=== PATIENT | female | born 1995 | race Caucasian/White ===

== ENCOUNTER 2016-04-26 23:05 | Outpatient (CLI) | payer MEDICAID ==
[2016-04-26 23:59] LABS: APPEARANCE,URINE SLIGHTLY-CLOUDY; BILIRUBIN,URINE NEGATIVE (NEGATIVE); GLUCOSE, URINE NEGATIVE (NEGATIVE); KETONES,URINE NEGATIVE (NEGATIVE); LEUKOCYTE ESTERASE,URINE SMALL (NEGATIVE); NITRITE,URINE NEGATIVE (NEGATIVE); PROTEIN,URINE NEGATIVE (NEGATIVE); URINE SPECIFIC GRAVITY 1.009; UROBILINOGEN,URINE NEGATIVE mg/dL (<2.0)
[2016-04-27 00:23] LABS: URINE BARBITURATES SCREEN NEGATIVE; URINE METHADONE SCREEN NEGATIVE; URINE OPIATES LOW NEGATIVE; URINE PHENCYCLIDINE SCREEN NEGATIVE
--- NOTE | 2016-04-27 04:45 | L&D General Admission ---
General Admit Datetime Report Generated by CPN: 04/27/2016 04:45 INFORMATION Patient Age: 20 (07/17/2015 18:37:QS system process) EDC: 07/29/2016 00:00 (04/26/2016 23:12:Alejandra Colvin RN) : 3 (04/26/2016 23:12:Radha Pelletier RN) Para: 1 (04/27/2016 01:32:Alejandra Colvin RN) Para: 1 (04/26/2016 23:12:Radha Pelletier RN) Term: 1 (04/26/2016 23:12:Radha Pelletier RN) : 0 (04/26/2016 23:12:Radha Pelletier RN) Induced Abortions: 1 (04/26/2016 23:12:Radha Pelletier RN) Livin (04/26/2016 23:12:Radha Pelletier RN) Baby, Number in Womb: 1 (04/27/2016 01:32:Alejandra Colvin RN) Baby, Number in Womb: 1 (04/26/2016 23:12:Radha Pelletier RN) CARE Primary Sintering Press Operator: [facility] (04/26/2016 23:12:Radha Pelletier RN) Adequate Care: Yes (04/26/2016 23:12:Alejandra Colvin RN) Height (in): 61 (04/26/2016 23:58:QS system process) ALLERGIES Medication Allergy: Yes (04/26/2016 23:12:Radha Pelletier RN) Medication Allergies: hydrocodone bitartrate (07/17/2015); Sulfa (Sulfonamide Antibiotics) (07/17/2015); sulfamethoxazole (07/17/2015); trimethoprim (07/17/2015) (08/05/2015 16:43:QS system process) Medication Allergies: Hydrocodone Bit (07/17/2015); Sulfa (Sulfonamide Antibiotics) (07/17/2015); Sulfamethoxazole (07/17/2015); Trimethoprim (07/17/2015) (07/17/2015 23:57:QS system process) Medication Allergies: Hydrocodone Bit (07/17/2015); Sulfa (Sulfonamide Antibiotics) (07/17/2015); Acetaminophen (07/17/2015); Sulfamethoxazole (07/17/2015); Trimethoprim (07/17/2015) (07/17/2015 19:27:QS system process) Medication Allergies: Hydrocodone Bit (01/15/2013); Sulfa (Sulfonamide Antibiotics) (01/15/2013); Acetaminophen (01/15/2013); Sulfamethoxazole (07/17/2015); Trimethoprim (07/17/2015) (07/17/2015 18:37:QS system process) Latex Allergy: No Latex Allergies (04/26/2016 23:12:Alejandra Colvin RN) Food Allergies: N/A (04/26/2016 23:12:Alejandra Colvin RN) Environmental Allergies: N/A (04/26/2016 23:12:Alejandra Colvin RN) COMMUNICATION Primary Language: Citizen Of [place] (04/26/2016 23:12:Radha Pelletier RN) Medical Tx Preferred Language: Citizen Of [place] (04/26/2016 23:12:Radha Pelletier RN) Communication Barrier(s): None (04/26/2016 23:12:Alejandra Colvin RN) DEMOGRAPHICS Address: [address] [place] [address], [address] [address] (04/26/2016 23:05:QS system process) Address: [address] [place] [id number] (07/17/2015 18:37:QS system process) Zipcode: [address] (04/26/2016 23:05:QS system process) Zipcode: [address] (07/17/2015 18:37:QS system process) Home (04/26/2016 23:05:QS system process) Home (07/17/2015 23:57:QS system process) Home (07/17/2015 18:37:QS system process) Work (04/26/2016 23:05:QS system process) SSN: [id number] (07/17/2015 18:37:QS system process) Next of Kin Name: SHELLEY DUNAWAY (07/17/2015 18:37:QS system process) Next of Kin (04/26/2016 23:05:QS system process) Next of Kin (07/17/2015 18:37:QS system process) Next of Kin Relationship: OR (07/17/2015 18:37:QS system process) Date of : 1995 (07/17/2015 18:37:QS system process) Marital Status: Legally (07/17/2015 18:37:QS system process) Sex: Female (07/17/2015 18:37:QS system process) Race: (07/17/2015 18:37:QS system process) Ethnicity: Non- or (07/17/2015 18:37:QS system process) Catholic: None (07/17/2015 18:37:QS system process) FOB Involved: Yes (04/26/2016 23:12:Alejandra Colvin RN) Father of Baby Name: hSelley Dunaway (04/26/2016 23:12:Alejandra Colvin RN) DRUG AND ALCOHOL USE Alcohol: No (04/26/2016 23:12:Alejandra Colvin RN) Cigarettes: Current Everyday Smoker. [id number] (04/26/2016 23:12:Alejandra Colvin RN) Average Cigarettes Smoked: 5 - 10 per day (04/26/2016 23:12:Alejandra Colvin RN) Advised to Stop Smoking: Yes (04/26/2016 23:12:Alejandra Colvin RN) Marijuana: No (04/26/2016 23:12:Alejandra Colvin RN) Cocaine: No (04/26/2016 23:12:Alejandra Colvin RN) Other Illicit Drugs: No (04/26/2016 23:12:Alejandra Colvin RN) VACCINE HISTORY Influenza Vaccine: No (04/26/2016 23:12:Alejandra Colvin RN) Pneumococcal Vaccine: No (04/26/2016 23:12:Alejandra Colvin RN) Tetanus Vaccine: No (04/26/2016 23:12:Alejandra Colvin RN) Tdap Vaccine: No (04/26/2016 23:12:Alejandra Colvin RN) Hepatitis B Vaccine: Uncertain (04/26/2016 23:12:Alejandra Colvin RN) Legal Financial Specialist: [facility] (04/26/2016 23:12:Alejandra Colvin RN) Feeding Preference: Breast (04/26/2016 23:12:Alejandra Colvin RN) Benefit of Breast Feed Discussed: Yes (04/26/2016 23:12:Alejandra Colvin RN) Circumcision: Yes (04/26/2016 23:12:Alejandra Colvin RN) Classes Attended: Unknown (04/26/2016 23:12:Alejandra Colvin RN) Tubal Ligation: No (04/26/2016 23:12:Alejandra Colvin RN) Tubal Authorization Signed: N/A (04/26/2016 23:12:Alejandra Colvin RN) Consent: N/A (04/26/2016 23:12:Alejandra Colvin RN) Consent Signed: N/A (04/26/2016 23:12:Alejandra Colvin RN) Pain Management Plans: Medications (04/26/2016 23:12:Alejandra Colvin RN) Plans for Labor and Delivery: None (04/26/2016 23:12:Alejandra Colvin RN) Support Person: Shelley Dunaway (04/26/2016 23:12:Alejandra Colvin RN) Support Person Relationship: Significant Other (04/26/2016 23:12:Alejandra Colvin RN) Cultural/Spritual Practice: No (04/26/2016 23:12:Alejandra Colvin RN) Spir/Cult Dietary Needs: No (04/26/2016 23:12:Alejandra Colvin RN) LIVING SITUATION/DISCHARGE PLAN Living Arrangements: House (04/26/2016 23:12:Alejandra Colvin RN) Adequate Access to:: Electric; Heat; Refrigeration; Plumbing/Running water; Phone; Transportation (04/26/2016 23:12:Alejandra Colvin RN) WIC Program: Yes (04/26/2016 23:12:Alejandra Colvin RN) Discharge Slot Shift Supervisor Person: Shelley Dunaway (04/26/2016 23:12:Alejandra Colvin RN) Person to Help after Discharge: Shelley Dunaway (04/26/2016 23:12:Alejandra Colvin RN) Currently Using Commun Resources: Yes (04/26/2016 23:12:Alejandra Colvin RN) Specify Current Resource Used: [facility] [place] (04/26/2016 23:12:Alejandra Colvin RN) Outside Agency/Keg Inspector: No (04/26/2016 23:12:Alejandra Colvin RN) Car Seat for Discharge: Yes (04/26/2016 23:12:Alejandra Colvin RN) Adoption Requested: No (04/26/2016 23:12:Alejandra Colvin RN) Pt Contact w/ Post : N/A (04/26/2016 23:12:Alejandra Colvin RN) LABS Blood Type: O Positive (04/26/2016 23:12:Radha Pelletier RN) Hemoglobin: 13.2 (07/17/2015 18:45:QS system process) Hematocrit: 40.1 (07/17/2015 18:45:QS system process) MCV: 88 (07/17/2015 18:45:QS system process) OB/PREVIOUS HISTORY Previous Procedures: Ultrasound; NST (04/26/2016 23:12:Alejandra Colvin RN) Current Procedures: Ultrasound (04/26/2016 23:12:Alejandra Colvin RN) History of Previous : No (04/26/2016 23:12:Alejandra Colvin RN) History of Gestational Diabetes: No (04/26/2016 23:12:Alejandra Colvin RN) History of PIH: No (04/26/2016 23:12:Alejandra Colvin RN) History of Incompetent Cervix: No (04/26/2016 23:12:Alejandra Colvin RN) History of Placenta Previa/Abrup: No (04/26/2016 23:12:Alejandra Colvin RN) History of Macrosomia: No (04/26/2016 23:12:Alejandra Colvin RN) History of IUGR: No (04/26/2016 23:12:Alejandra Colvin RN) History of Hemorrhage: No (04/26/2016 23:12:Alejandra Colvin RN) History of Loss/Stillborn: No (04/26/2016 23:12:Alejandra Colvin RN) History of : No (04/26/2016 23:12:Alejandra Colvin RN) History of D (Rh) Sensitization: No (04/26/2016 23:12:Alejandra Colvin RN) History Recurrent Loss/Stillborn: No (04/26/2016 23:12:Alejandra Colvin RN) History Depression/PP Depression: No (04/26/2016 23:12:Alejandra Colvin RN) History of Uterine Anomaly/EULOGIO: No (04/26/2016 23:12:Alejandra Colvin RN) History of Infertility: No (04/26/2016 23:12:Alejandra Colvin RN) History of ART Treatment: No (04/26/2016 23:12:Alejandra Colvin RN) History of EULOGIO: No (04/26/2016 23:12:Alejandra Colvin RN) Comments Obstetrical History: G1 - 2009 - SAB G2 - 04/2015 - , girl G3 - current (04/26/2016 23:12:Alejandra Colvin RN) MEDICAL HISTORY Med Hx Diabetes: No (04/26/2016 23:12:Alejandra Colvin RN) Med Hx Hypertension: No (04/26/2016 23:12:Alejandra Colvin RN) Med Hx Heart Disease: No (04/26/2016 23:12:Alejandra Field, RN) Med Hx Autoimmune Disorder: No (04/26/2016 23:12:Alejandra Colvin RN) Med Hx Kidney Disease/UTI: No (04/26/2016 23:12:Alejandra Colvin RN) Med Hx Neurologic/Epilepsy: No (04/26/2016 23:12:Alejandra Colvin RN) Med Hx Psychiatric Disorders: No (04/26/2016 23:12:Alejandra Colvin RN) Med Hx Hepatitis/Liver Disease: No (04/26/2016 23:12:Alejandra Colvin RN) Med Hx Varicosities/Phlebitis: No (04/26/2016 23:12:Alejandra Colvin RN) Med Hx Thyroid Dysfunction: No (04/26/2016 23:12:Alejandra Colvin RN) Med Hx Trauma/Violence: No (04/26/2016 23:12:Alejandra Colvin RN) Med Hx Blood Transfusion: No (04/26/2016 23:12:Alejandra Colvin RN) Med Hx Pulmonary (Asthma,TB): No (04/26/2016 23:12:Alejandra Colvin RN) Med Hx Breast: No (04/26/2016 23:12:Alejandra Colvin RN) Med Hx SENIOR RESEARCH FELLOW Surgery: No (04/26/2016 23:12:Alejandra Colvin RN) Med Hx Hospitalization/Surgery: Yes (04/26/2016 23:12:Alejandra Colvin RN) Med Hx Anesthetic Complications: No (04/26/2016 23:12:Alejandra Colvin RN) Med Hx Abnormal Pap Smear: No (04/26/2016 23:12:Alejandra Colvin RN) Other Medical Diseases: No (04/26/2016 23:12:Alejandra Colvin RN) Med Hx Significant Family Hx: No (04/26/2016 23:12:Alejandra Colvin RN) Details of Med/Surg Hx: Tonsilectomy - 08/2013 (04/26/2016 23:12:Alejandra Colvin RN) INFECTIOUS HISTORY Inf Hx Gonorrhea: No (04/26/2016 23:12:Alejandra Colvin RN) Inf Hx Chlamydia: No (04/26/2016 23:12:Alejandra Colvin RN) Inf Hx Syphilis: No (04/26/2016 23:12:Alejandra Colvin RN) Inf Hx HIV/AIDS: No (04/26/2016 23:12:Alejandra Colvin RN) Inf Hx Human Papilloma Virus: Yes (04/26/2016 23:12:Alejandra Colvin RN) Inf Hx Pt/Partner Genital Herpes: No (04/26/2016 23:12:Alejandra Colvin RN) Inf Hx Tuberculosis/Exposure: No (04/26/2016 23:12:Alejandra Colvin RN) Inf Hx Hepatitis B,C: No (04/26/2016 23:12:Alejandra Colvin RN) Inf Hx Rash or Viral Illness: No (04/26/2016 23:12:Alejandra Colvin RN) GENETIC HISTORY Gen Hx Age >=35 at JAYLEN: No (04/26/2016 23:12:Alejandra Colvin RN) Gen Hx Thalassemia: No (04/26/2016 23:12:Alejandra Colvin RN) Gen Hx Congenital Heart Defect: No (04/26/2016 23:12:Alejandra Colvin RN) Gen Hx Neural Tube Defect: No (04/26/2016 23:12:Alejandra Colvin RN) Gen Hx Down's Syndrome: No (04/26/2016 23:12:Alejandra Colvin RN) Gen Hx Jorge-Sachs: No (04/26/2016 23:12:Alejandra Colvin RN) Gen Hx Raheem: No (04/26/2016 23:12:Alejandra Colvin RN) Gen Hx Familial Dysautonomia: No (04/26/2016 23:12:Alejandra Colvin RN) Gen Hx Sickle Cell Disease/Trait: No (04/26/2016 23:12:Alejandra Colvin RN) Gen Hx Hemophilia/Blood Disorder: No (04/26/2016 23:12:Alejandra Colvin RN) Gen Hx Muscular Dystrophy: No (04/26/2016 23:12:Alejandra Colvin RN) Gen Hx Cystic Fibrosis: No (04/26/2016 23:12:Alejandra Colvin RN) Gen Hx Huntingtons Chorea: No (04/26/2016 23:12:Alejandra Colvin RN) Gen Hx Mental Retardation/Autism: No (04/26/2016 23:12:Alejandra Colvin RN) Gen Hx Tested for Fragile X: No (04/26/2016 23:12:Alejandra Colvin RN) Gen Hx Other Inher/Chromosomal: No (04/26/2016 23:12:Alejandra Colvin RN) Gen Hx Maternal Metabolic DO: No (04/26/2016 23:12:Alejandra Colvin RN) Gen Hx Pt Father or FOB Defect: No (04/26/2016 23:12:Alejandra Colvin RN) Gen Hx Other Genetic History: No (04/26/2016 23:12:Alejandra Colvin RN) Gen Hx Drugs/Meds since LMP: Yes (04/26/2016 23:12:Alejandra Colvin RN) Gen Hx Medications: vitamins, Immodium (04/26/2016 23:12:Alejandra Colvin RN)
--- NOTE | 2016-04-27 04:45 | L&D Discharge Summary ---
OB Discharge Summary Datetime Report Generated by CPN: 04/27/2016 04:45 DISCHARGE DIAGNOSIS Diagnosis/Symptoms: False Labor Gestation: 26.4 Number of Babies in Womb: 1 Parity: 1 DIET/ACTIVITY/RESTRICTIONS Diet: Regular Activity: Normal Activity TEACHING/INSTRUCTIONS/REFERRALS Instructions Given To: Patient Instructions Understood: Patient Verbalized Understanding; Support Person Verbalized Understanding Referrals: None Educational Materials- Other: Labor DISCHARGE INFORMATION Discharged AMA: No Discharge Date/Time: 04/27/2016 01:24 Discharged To: Home Discharge Provider Name: Dr. Bowers Accompanied By: Self Discharge Method: Ambulatory Condition: Stable FOLLOW UP INFORMATION Follow Up With: [facility] Follow Up On: As Scheduled Follow Up Phone Number: [facility] - Comments: Discusse labor and signs and symptoms of when to return to office or hospital with patient. Patient verbalized understanding. Patient discharged home due to false labor via ambulation in stable condition. GENERAL INSTR-CALL PROVIDER IF: Contractions: Contractions or cramps become more frequent than 8 in one hour or 4 in 20 minutes; Regular painful contractions every 5 minutes or less for one hour. Time your contractions from the beginning of one to the beginning of the next Pressure: Pressure in your vagina or lower abdomen that may feel like the baby is pushing down Period Like Cramps: Period-like cramps or low dull backache that may come and go Cramps/Diarrhea: Abdominal cramps that may be accompanied by diarrhea Gush of Fluid/Blood: Gush of fluid or blood from your vagina (it is normal to have spotting after vaginal exam or intercourse) Vaginal Discharge: Change in the type or amount of vaginal discharge Decreased Movement: Your baby is not moving as much as usual- 4 movements in 1 hour after drinking and resting on side Temperature: Temperature greater than 100.0(F) orally
--- NOTE | 2016-04-27 04:45 | L&D Flow Sheet ---
LD Flowsheet Datetime Report Generated by CPN: 04/27/2016 04:45 Datetime: 04/27/2016 01:06 Patient Care Patient Care Comments: discussed labor signs and symptoms with patient; patient verbalized understanding (Alejandra Field, RN) Datetime: 04/27/2016 00:57 Communication Communication: RN Reviewed Strip; Provider Orders Received; Call/Page Placed to Provider (Alejandra Field, RN) Communication Comments: Informed Dr. Bowers of cervical length and positive drug screen; orders received to discharge home (Alejandra Field, RN) Datetime: 04/27/2016 00:46 Vital Signs NBP Sys/Mercy/Mean (mmHg): 106 (QS system process) : 68 (QS system process) : 81 (QS system process) Pulse: 78 (QS system process) Datetime: 04/27/2016 00:25 Patient Care Patient Care Comments: Off floor for U/S for cervical length (Alejandra Field, RN) Datetime: 04/27/2016 00:05 Communication Comments: Dr. Bowers ordered to disconnect FHR for gestational age (Alejandra Colvin, RN) Datetime: 04/27/2016 00:01 Communication Communication: RN Reviewed Strip; Provider Orders Received; Call/Page Placed to Provider (Alejandra , RN) Communication Comments: Informed DrFlakito Bowers of patient's complaint, history, urine results and FHR/contraction; orders received for U/S for cervical length (Alejandra Colvin, RN) Datetime: 04/26/2016 23:56 Vital Signs NBP Sys/Mercy/Mean (mmHg): 107 (QS system process) : 65 (QS system process) : 78 (QS system process) Pulse: 96 (QS system process) Datetime: 04/26/2016 23:38 Pain Pain Scale: 3 (Alejandra Colvin RN) Pain Presence: Intermittent (Alejandra Colvin RN) Pain Type: Sharp; Pressure (Alejadnra Colvin RN) Pain Location: Abdomen; [facility] Pain Goal: 0 ([facility] Pain Relief Measures: Comfort Measures ([facility], ) Pain Coping: Talking Through Contractions; Breathing Through Contractions ([facility], ) Vaginal Exam Vaginal Bleeding: None ([facility], ) Maternal Assessment Level of Consciousness: Fully Conscious ([facility], ) DTR's/Clonus: DTRs 1+; No Clonus ([facility], RN) Headache: Denies ([facility], RN) Breath Sounds, Left: Clear and Equal [facility] Breath Sounds, Right: Clear and Equal ([facility], RN) Nausea/Vomiting: Present ([facility] ) RUQ Epigastric Pain: Denies ([facility], ) Teaching Instructional Method: Verbal; Patient Instructed; Verbalized Understanding (Alejandra Colvin RN) Plan of Care: Plan of Care Discussed (Alejandra Colvin RN) Unit Routine: [place] to Room; Call [place]oudhury; Bed; Visiting Policy; Waiting Areas; Phone/Cell Phone Use; Unit Personnel; Handwashing; Monitoring; Safety/Fall Risk Prevention; Bathroom Privileges (Alejandra Colvin RN) Datetime: 04/26/2016 23:26 Vital Signs NBP Sys/Mercy/Mean (mmHg): 101 (QS system process) : 56 (QS system process) : 71 (QS system process) Pulse: 75 (QS system process)
--- NOTE | 2016-04-27 04:45 | L&D Admission Assessment ---
LD ADM ASMT Datetime Report Generated by CPN: 04/27/2016 04:45 PATIENT ASSESSMENT Assessment Type: Triage (04/26/2016 23:38:Alejandra Field, RN) WEIGHT Weight (lb): 136 (04/26/2016 23:58:QS system process) Weight (kg): 61.8 (04/26/2016 23:58:QS system process) PAIN Pain Scale: 3 (04/26/2016 23:38:Alejandra Colvin RN) Pain Presence: Intermittent (04/26/2016 23:38:Alejandra Colvin RN) Pain Type: Sharp; Pressure (04/26/2016 23:38:Alejandra Colvin RN) Pain Location: Abdomen; Perineum (04/26/2016 23:38:Alejandra Colvin RN) Pain Goal: 0 (04/26/2016 23:38:Alejandra Colvin RN) Pain Related to Contraction: Unsure (04/26/2016 23:38:Alejandra Colvin RN) NEURO Level of Consciousness: Fully Conscious (04/26/2016 23:38:Alejandra Colvin RN) DTR's/Clonus: DTRs 1+; No Clonus (04/26/2016 23:38:Alejandra Colvin RN) Headache: Denies (04/26/2016 23:38:Alejandra Colvin RN) Dizziness: No (04/26/2016 23:38:Alejandra Colvin RN) Blurred Vision: No (04/26/2016 23:38:Alejandra Colvin RN) Extremity Numbness/Tingling : None (04/26/2016 23:38:Alejandra Colvin RN) Extremity Movement: Full Range of Motion (04/26/2016 23:38:Alejandra Colvin RN) CARDIOVASCULAR Heart Rhythm: Regular (04/26/2016 23:38:Alejandra Colvin RN) Nailbeds: [place] (04/26/2016 23:38:Alejandra Colvin RN) Capillary Refill: Less than 3 Seconds (04/26/2016 23:38:Alejandra Colvin RN) Lower Extremities Edema: None (04/26/2016 23:38:Alejandra Colvin RN) Lower Extremities Edema Degree: None (04/26/2016 23:38:Alejandra Colvin RN) Upper Extremities Edema: None (04/26/2016 23:38:Alejandra Colvin RN) Upper Extremities Edema Degree: None (04/26/2016 23:38:Alejandra Colvin RN) Facial Edema: None (04/26/2016 23:38:Alejadnra Colvin RN) Vanessa's Sign Left Leg: Negative (04/26/2016 23:38:Alejandra Colvin RN) Vanessa's Sign Right Leg: Negative (04/26/2016 23:38:Alejandra Colvin RN) DVT RISK ASSESSMENT DVT Risk Age: Age less than 41 years (04/26/2016 23:38:Alejandra Colvin RN) DVT Risk BMI: BMI<31 (04/26/2016 23:38:Alejandra Colvin RN) DVT Risk Surgery: History of Prior Major Surgery (04/26/2016 23:38:Alejandra Colvin RN) DVT Risk Other: Women Only- or (<1 month) (04/26/2016 23:38:Alejandra Colvin RN) DVT Risk Total: 2 (04/26/2016 23:38:QS system process) DVT Risk Text: Moderate Risk (10-20%) - Consider stockings, compresssion device, pharmacological therapy per hospital policy (04/26/2016 23:38:QS system process) RESPIRATORY Respiratory Effort: Unlabored; Regular Rhythm; Equal Expansion (04/26/2016 23:38:Alejandra Colvin RN) Breath Sounds, Left: Clear and Equal (04/26/2016 23:38:Alejandra Colvin RN) Breath Sounds, Right: Clear and Equal (04/26/2016 23:38:Alejandra Colvin RN) Cough Productivity: None (04/26/2016 23:38:Alejandra Colvin RN) GASTROINTESTINAL Nausea/Vomiting: Present (04/26/2016 23:38:Alejandra Colvin RN) Bowel Sounds: Normoactive (04/26/2016 23:38:Alejandra Colvin RN) RUQ Epigastric Pain: Denies (04/26/2016 23:38:Alejandra Colvin RN) Bowel Patterns: Constipation (04/26/2016 23:38:Alejandra Colvin RN) Hemorrhoids: None (04/26/2016 23:38:Alejandra Colvin RN) Diet Type: Regular diet (04/26/2016 23:38:Alejandra Colvin RN) Last Meal: 04/26/2016 20:45 (04/26/2016 23:38:Alejandra Colvin RN) GENITOURINARY Bladder: Nondistended (04/26/2016 23:38:Alejandra Colvin, DAYANNA) Frequency of Urination: No (04/26/2016 23:38:Alejandra Colvin RN) Urination Burning: No (04/26/2016 23:38:Alejandra Colvin RN) CVA Tenderness: No (04/26/2016 23:38:Alejanrda Colvin, DAYANNA) INTEGUMENTARY Skin Color: Normal for Race (04/26/2016 23:38:Alejandra Colvin RN) Skin Temperature: Warm (04/26/2016 23:38:Alejandra Colvin RN) Skin Moisture: Dry (04/26/2016 23:38:Alejandra Colvin RN) JHONATAN SKIN ASSESSMENT Jhonatan Scale Sensory Perception: No Impairment- Responds to verbal commands. Has no sensory deficit which would limit ability to feel or voice pain or discomfort (04/26/2016 23:38:Alejandra Colvin RN) Jhonatan Scale Moisture: Rarely Moist- Skin is usually dry. Linen only requires changing at routine intervals (04/26/2016 23:38:Alejandra Colvin RN) Jhonatan Scale Activity: Walks Frequently- Walks outside the room at least twice a day and inside room at least every 2 hours during the day. (04/26/2016 23:38:Alejandra Colvin RN) Jhonatan Scale Mobility: No Limitations- Makes major and frequent changes in position without assistance (04/26/2016 23:38:Alejandra Colvin RN) Jhonatan Scale Nutrition: Excellent- Eats most of every meal. Never refuses a meal. Usually eats a total of 4 or more servings of meat and dairy products. Occasionally eats between meals. Does not require supplementation (04/26/2016 23:38:Alejandra Colvin RN) Jhonatan Scale Friction and Shear: No Apparent Problem- Moves in bed and in chair independently and has sufficient muscle strength to lift up completely during move. Maintains good position in bed or chair at all times (04/26/2016 23:38:Alejandra Colvin RN) Jhonatan Scale Total: 23 (04/26/2016 23:38:QS system process) Jhonatan Scale Risk: No Risk of Pressure Ulcer Noted at this Time (04/26/2016 23:38:QS system process) SUPPORT Emotional State: Calm/Relaxed (04/26/2016 23:38:Alejandra Colvin RN) SAFETY Call Choudhury Within Reach: Yes (04/26/2016 23:38:Alejandra Colvin RN) Side Rails Up: Yes (04/26/2016 23:38:Alejandra Colvin RN) Bed Wheels Locked: Yes (04/26/2016 23:38:Alejandra Colvin RN) Arm Bands Present: Yes (04/26/2016 23:38:Alejandra Colvin RN) Isolation: Independence (04/26/2016 23:38:Alejandra Colvin RN) FALL SCREEN Fall Risk History of Falling: (0) No (04/26/2016 23:38:Alejandra Colvin RN) Fall Risk Secondary Diagnosis: (0) No (04/26/2016 23:38:Alejandra Colvin RN) Fall Risk Ambulatory Aid: (0) None/Bedrest/Wheelchair/Nurse Assist (04/26/2016 23:38:Alejandra Colvin RN) Fall Risk IV Therapy: (0) No (04/26/2016 23:38:Alejandra Colvin RN) Fall Risk Gait: (0) Normal/Bedrest/Immobile (04/26/2016 23:38:Alejandra Colvin RN) Fall Risk Mental Status: (0) Oriented to Own Ability (04/26/2016 23:38:Alejandra Colvin RN) Fall Risk Score: 0 (04/26/2016 23:38:QS system process) Fall Risk Score Definition: No Risk: No action required (04/26/2016 23:38:QS system process) RECENT TRAVEL/INFECTIOUS DISEASE Recent Exp Communicable Disease: No (04/26/2016 23:38:Alejandra Colvin RN) Cough or Fever: No (04/26/2016 23:38:Alejandra Colvin RN) Foreign Travel Past 10 Days: No (04/26/2016 23:38:Alejandra Colvin RN) Open Wounds or Sores: No (04/26/2016 23:38:Alejandra Colvin RN) Prior Antibiotic Resistance Tx: No (04/26/2016 23:38:Alejandra Colvin RN) Cultures Obtained: Not Applicable (04/26/2016 23:38:Alejandra Colvin RN) Isolation Initiated: No (04/26/2016 23:38:Alejandra Colvin RN) Pt/Family Education: Handwashing Hygiene (04/26/2016 23:38:Alejandra Colvin RN)
--- NOTE | 2016-04-27 04:45 | Antepartum Discharge Summary ---
Antepartum DC Datetime Report Generated by CPN: 04/27/2016 04:45 DIET/ACTIVITY/RESTRICTIONS Diet: Regular (04/27/2016 01:32:Alejandra Field ) Activity: Normal Activity (04/27/2016 01:32:Alejandra , RN) TEACHING/INSTRUCTIONS/REFERRALS Instructions Given To: Patient (04/27/2016 01:32:Alejandra , ) Instructions Understood: Patient Verbalized Understanding; Support Person Verbalized Understanding (04/27/2016 01:32:Alejandra Colvin RN) Referrals: None (04/27/2016 01:32:Alejandra Colvin RN) Educational Materials- Other: Labor (04/27/2016 01:32:Alejandra Colvin RN) DISCHARGE INFORMATION Discharged AMA: No (04/27/2016 01:32:Alejandra Colvin RN) Discharge Date/Time: 04/27/2016 01:24 (04/27/2016 01:32:Alejandra Colvin RN) Discharged To: Home (04/27/2016 01:32:Alejandra Colvin RN) Discharge Provider Name: Dr. Bowers (04/27/2016 01:32:Alejandra Colvin RN) Accompanied By: Self (04/27/2016 01:32:Alejandra Covlin RN) Discharge Method: Ambulatory (04/27/2016 01:32:Alejandra Colvin RN) Condition: Stable (04/27/2016 01:32:Alejandra Colvin RN) FOLLOW UP INFORMATION Follow Up With: [facility] (04/27/2016 01:32:Alejandra Colvin RN) Follow Up On: As Scheduled (04/27/2016 01:32:Alejandra Colvin RN) Follow Up Phone Number: [facility] - (04/27/2016 01:32:Alejandra Colvin RN) Comments: Discusse labor and signs and symptoms of when to return to office or hospital with patient. Patient verbalized understanding. Patient discharged home due to false labor via ambulation in stable condition. (04/27/2016 01:32:Alejandra Colvin RN) GENERAL INSTR-CALL PROVIDER IF: Contractions: Contractions or cramps become more frequent than 8 in one hour or 4 in 20 minutes; Regular painful contractions every 5 minutes or less for one hour. Time your contractions from the beginning of one to the beginning of the next (04/27/2016 01:32:Alejandra Colvin RN) Pressure: Pressure in your vagina or lower abdomen that may feel like the baby is pushing down (04/27/2016 01:32:Alejandra Colvin RN) Period Like Cramps: Period-like cramps or low dull backache that may come and go (04/27/2016 01:32:Alejandra Colvin RN) Cramps/Diarrhea: Abdominal cramps that may be accompanied by diarrhea (04/27/2016 01:32:Alejandra Colvin RN) Gush of Fluid/Blood: Gush of fluid or blood from your vagina (it is normal to have spotting after vaginal exam or intercourse) (04/27/2016 01:32:Alejandra Colvin RN) Vaginal Discharge: Change in the type or amount of vaginal discharge (04/27/2016 01:32:Alejandra Colvin RN) Decreased Movement: Your baby is not moving as much as usual- 4 movements in 1 hour after drinking and resting on side (04/27/2016 01:32:Alejandra Colvin RN) Temperature: Temperature greater than 100.0(F) orally (04/27/2016 01:32:Alejandra Colvin RN) Hypertension Signs/Symptoms: Severe headache which is not relieved 30 minutes after taking Tylenol(Acetaminophen); Blurry vision or spots before your eyes; Severe heartburn or pain on the upper right side of your abdomen that is not relieved by an antacid; Increased swelling in your face, hands or feet (04/27/2016 01:32:Alejandra Colvin RN) Urinary Output: Decreased urinary output or dark colored urine (04/27/2016 01:32:Alejandra Colvin RN)
--- NOTE | 2016-04-27 04:45 | L&D Current Admission ---
Current Admit Datetime Report Generated by CPN: 04/27/2016 04:45 ADMISSION INFORMATION Chief Complaint: Uterine Cramping (04/26/2016 23:38:Alejandra Colvin RN)
== END 2016-04-27 01:24 | disposition home or self-care (01) ==
LOC: LC 23:05
PROVIDERS: ATTEND Obstetrics & Gynecology
PROC: 4A1HXCZ Monitoring of Products of Conception, Cardiac Rate, External Approach (ICD-10-PCS; principal; 2016-04-26)
DX: O47.02 False labor before 37 completed weeks of gestation, second trimester (principal); Z3A.26 26 weeks gestation of pregnancy
CPT/HCPCS: 59899; 81001; 80307 ×2; 76815; G0480 ×3

== ENCOUNTER → 2016-05-01 | Outpatient (CLI) | payer MEDICAID | LOC: OD 14:52 | PROVIDERS: ATTEND Obstetrics & Gynecology | DX: N39.0 Urinary tract infection, site not specified (principal) | CPT/HCPCS: 87070; 87804; 87880 ==

== ENCOUNTER 2016-05-31 18:52 | Outpatient (CLI) | payer MEDICAID ==
[2016-05-31 19:15] LABS: APPEARANCE,URINE CLEAR; BILIRUBIN,URINE NEGATIVE (NEGATIVE); GLUCOSE, URINE NEGATIVE (NEGATIVE); KETONES,URINE NEGATIVE (NEGATIVE); LEUKOCYTE ESTERASE,URINE TRACE (NEGATIVE); NITRITE,URINE NEGATIVE (NEGATIVE); PROTEIN,URINE NEGATIVE (NEGATIVE); URINE SPECIFIC GRAVITY 1.005; UROBILINOGEN,URINE NEGATIVE mg/dL (<2.0)
[2016-05-31 19:28] LABS: URINE BARBITURATES SCREEN NEGATIVE; URINE METHADONE SCREEN NEGATIVE; URINE OPIATES LOW NEGATIVE; URINE PHENCYCLIDINE SCREEN NEGATIVE
[2016-05-31] MEDS ORDERED: MAG HYDROX/AL HYDROX/SIMETH SUSP 30 ML UDCUP ONE (19:54)
--- NOTE | 2016-05-31 20:01 | L&D Flow Sheet ---
LD Flowsheet Datetime Report Generated by CPN: 05/31/2016 20:00 Datetime: 05/31/2016 19:52 Comments: pt sitting up to alleviate constant back pain (Lisa Augustus, RN) Comfort Measures: Hot/Cold Pack (Lisa Augustus, RN) Datetime: 05/31/2016 19:35 Patient Care IV/Blood Work: IV Bolus Started (Lisa Augustus, RN) Patient Care Comments: 1 L D5LR started through existing IV per orders from Dr Perkins, on unit (Lisa Augustus, RN) Datetime: 05/31/2016 19:30 Assessment A Monitor Interventions for FHR: Ultrasound Adjusted (Lisa Augustus, RN) Comments: Excessive movement and hiccups auscultated (Lisa Augustus, RN) Communication Communication: RN at Bedside (Lisa Augustus, RN) Datetime: 05/31/2016 19:20 Frequency (min): q5 minutes per pt (Lisa Augustus, RN) Pain Pain Scale: 3 (Lisa Augustus, RN) Pain Presence: Intermittent (Lisa Augustus, RN) Pain Type: Contraction (Lisa Augustus, RN) Pain Location: Back (Lisa Augustus, RN) Pain Goal: 1 (Lisa Augustus, RN) Pain Relief Measures: Comfort Measures (Lisa Augustus, RN) Pain Coping: Breathing Through Contractions (Lisa Augustus, RN) Membrane Status: Pt reports leaking of some fluid earlier in the day, did not continue after that (Lisa Augustus, RN) Vaginal Bleeding: None (Lisa Augustus, RN) Maternal Assessment Level of Consciousness: Fully Conscious (Lisa Augustus, RN) DTR's/Clonus: DTRs 2+; No Clonus (Lisa Augustus, RN) Headache: Denies (Lisa Augustus, RN) Breath Sounds, Left: Clear and Equal (Lisa Augustus, RN) Breath Sounds, Right: Clear and Equal (Lisa Augustus, RN) Nausea/Vomiting: Denies (Lisa Augustus, RN) RUQ Epigastric Pain: Denies (Lisa Augustus, RN) Patient Position/Activity: Right Tilt (Lisa Augustus, RN) Teaching Instructional Method: Verbal; Patient Instructed; Family/Support Person Instructed; Verbalized Understanding (Lisa Coffman, RN) Plan of Care: Plan of Care Discussed; Labor (Lisa Augustus, RN) Datetime: 05/31/2016 19:19 Vaginal Exam Dilatation (cm): 0.0 (Lisa Coffman RN) Effacement (%): 0 (Lisa Coffman, DAYANNA) Station: -3 (Lisa Coffman RN) Exam by: K Augustus RN (Lisa Coffman RN) Vaginal Bleeding: None (Lisa Coffman RN) Cervix, Consistency: Moderate (Lisa Coffman RN) Cervix, Position: Midposition (Lisa Coffman, DAYANNA) Datetime: 05/31/2016 19:15 Communication Communication: Report Given to @ K Augustus RN (Gabriel Cecil, RN) Datetime: 05/31/2016 19:10 Uterine Activity Monitor Mode: Palpation (Gabriel Cecil, RN) Quality: Mild/Moderate (Gabriel Cecil, RN) Datetime: 05/31/2016 19:09 Monitor Interventions for UA: [place] Adjusted (Gabriel Cecil, RN) Datetime: 05/31/2016 19:06 Vital Signs NBP Sys/Mercy/Mean (mmHg): 118 (QS system process) : 72 (QS system process) : 87 (QS system process) Pulse: 93 (QS system process) Datetime: 05/31/2016 19:04 Maternal Assessment Level of Consciousness: Fully Conscious (Gabriel Cecil, RN) DTR's/Clonus: DTRs 2+; No Clonus (Gabriel Cecil, RN) Headache: Denies (Gabriel Cecil, RN) Breath Sounds, Left: Clear and Equal (Gabriel Cecil, RN) Breath Sounds, Right: Clear and Equal (Gabriel Cecil, RN) Nausea/Vomiting: Denies (Gabriel Cecil, RN) RUQ Epigastric Pain: Denies (Gabriel Cecil, RN) Datetime: 05/31/2016 18:57 Frequency (min): 5min (Gabriel Cecil, RN) Vaginal Bleeding: None (Gabriel Jacob RN)
[2016-05-31 20:12] LABS: AMNISURE (ROM) NEGATIVE (NEGATIVE)
== END 2016-05-31 20:39 | disposition home or self-care (01) ==
LOC: LC 18:52
PROVIDERS: ATTEND Obstetrics & Gynecology
PROC: 4A1HXCZ Monitoring of Products of Conception, Cardiac Rate, External Approach (ICD-10-PCS; principal; 2016-05-31)
DX: O47.03 False labor before 37 completed weeks of gestation, third trimester (principal); Z3A.32 32 weeks gestation of pregnancy
CPT/HCPCS: 59025; 84112; 81001; 80307; J3490

== ENCOUNTER 2016-06-18 16:41 | Emergency (ER) | payer MEDICAID ==
--- NOTE | 2016-06-18 17:45 | ER Document Report ---
ED General - General Chief Complaint: Shortness Of Breath Stated Complaint: DIFFICULTY BREATHING Mode of Arrival: Medic Information source: Patient Notes: This is a 21-year-old female at 32 weeks' gestational age who presents via EMS with complaints of cough, shortness of breath and wheezing. She did receive an albuterol neb in route and she states that she feels better at this time. She reports that she has had a cough for the past 5-6 weeks which has been gradually getting worse. She denies any fevers chills or systemic symptoms. She has had a cough productive of some clear sputum. She denies any chest pain. She has had no problems with this and is followed at [facility]. Her next OB appointment is on June 26. She reports good movement today and no vaginal bleeding or loss of fluids. She denies any contractions. She has had no dysuria. Says she does not have a history of asthma and has never wheezed before. TRAVEL OUTSIDE OF THE [place] IN LAST 30 DAYS: No - Related Data Allergies/Adverse Reactions: hydrocodone bitartrate [From Vicodin] Allergy (Verified 05/31/16 19:03) Sulfa (Sulfonamide Antibiotics) Allergy (Verified 05/31/16 19:03) sulfamethoxazole [From Septra] Allergy (Verified 05/31/16 19:03) trimethoprim [From Septra] Allergy (Verified 05/31/16 19:03) Past Medical History - General Information source: Patient - Social History Smoking Status: Current Every Day Smoker Chew tobacco use (# tins/day): No Frequency of alcohol use: None Drug Abuse: Marijuana Family History: Reviewed & Not Pertinent Past Surgical History: Reports: Hx Oral Surgery, Hx Tonsillectomy - Immunizations Immunizations up to date: Yes Hx Diphtheria, Pertussis, Tetanus Vaccination: Yes Review of Systems - Review of Systems Notes: REVIEW OF SYSTEMS: CONSTITUTIONAL : Denies fever, chills, or sweats. Denies recent illness. EENT: Denies eye, ear, throat, or mouth pain or symptoms. Nasal congestion CARDIOVASCULAR: Denies chest pain. RESPIRATORY: As per history of present illness GASTROINTESTINAL: Denies abdominal pain. Denies nausea, vomiting, or diarrhea. GENITOURINARY: Denies difficulty urinating, painful urination, burning. As per history of present illness MUSCULOSKELETAL: Denies neck or back pain or joint pain or swelling. SKIN: Denies rash or skin lesions. HEMATOLOGIC : Denies easy bruising or bleeding. LYMPHATIC: Denies swollen, enlarged glands. NEUROLOGICAL: Denies altered mental status or loss of consciousness. Denies headache. PSYCHIATRIC: Denies anxiety or stress or depression. ALL OTHER SYSTEMS REVIEWED AND NEGATIVE. Physical Exam - Vital signs Vitals: Temp Pulse Resp BP Pulse Ox 97.5 F 78 18 103/65 97 06/18/16 16:50 06/18/16 16:50 06/18/16 16:50 06/18/16 16:50 06/18/16 16:50 - Notes Notes: PHYSICAL EXAMINATION: GENERAL: Well-appearing, well-nourished and in no acute distress. Pleasant and conversant with no conversational dyspnea however she does have a frequent cough HEAD: Atraumatic, normocephalic. EYES: Pupils equal round and reactive to light, extraocular movements intact, sclera anicteric, conjunctiva are normal. ENT: nares patent, oropharynx clear without exudates. Moist mucous membranes. NECK: Normal range of motion, supple without lymphadenopathy LUNGS: Breath sounds clear to auscultation bilaterally and equal. No wheezes rales or rhonchi. HEART: Regular rate and rhythm without murmurs ABDOMEN: Soft, gravid, nontender, normoactive bowel sounds. No guarding, no rebound. EXTREMITIES: Normal range of motion, no lower extremity edema NEUROLOGICAL: Cranial nerves grossly intact. Normal speech. No gross focal motor or sensory deficits appreciated. PSYCH: Normal mood, normal affect. SKIN: Warm, Dry, normal turgor, no rashes or lesions noted. Course - Re-evaluation Re-evalutation: Patient states that she continues to feel better since the albuterol neb treatment. Her chest x-ray shows no pneumonia. At this point I suspect bronchitis with bronchospasm. She is having no chest pain or pleuritic pain or hypoxia. I do not feel that her symptoms are consistent with PE at this time. She will be treated with penicillin and albuterol inhaler as well as a Z-Raoul. She is instructed to follow up with her OB physician this week. Strict return precautions were discussed. She is very comfortable with the plan and reliable to return for worsening. - Vital Signs Vital signs: Temp Pulse Resp BP Pulse Ox 97.5 F 78 19 111/71 98 06/18/16 16:50 06/18/16 16:50 06/18/16 21:01 06/18/16 21:01 06/18/16 21:01 - Laboratory Result Diagrams: 06/18/16 18:10 06/18/16 18:10 Laboratory results interpreted by me: 06/18/16 06/18/16 18:10 18:10 WBC 11.8 H Hgb 10.9 L Hct 32.0 L Carbon Dioxide 21 L BUN 5 L Alkaline Phosphatase 136 H Albumin 3.3 L Discharge - Discharge Clinical Impression: Bronchitis, Third trimester Condition: Stable Disposition: HOME, SELF-CARE Additional Instructions: BRONCHITIS WITH BRONCHOSPASM (WHEEZING): You have bronchitis with bronchospasm (wheezing). Sometimes people develop wheezing with a chest cold. This occurs either because of an underlying tendency toward asthma or because the virus itself irritates the bronchial tubes. This irritation causes cough, shortness of breath, and wheezing. Emergency treatment of bronchospasm may include adrenaline shots or bronchodilator aerosol. You may feel lightheaded and have a rapid pulse for an hour or two. Rest and get plenty of fluids. At home, we'll treat you with a bronchodilator inhaler. Corticosteroids may be required for some patients. Until you recover, avoid chemical fumes, dusts, pollens, and exercising in very cold or dry air. If you smoke, stop now! Most cases of bronchitis get better without antibiotics. We prescribe antibiotics when we believe bacteria are damaging your airways, or if there's high risk the bronchitis will worsen into pneumonia. Increase your fluid intake. A cool mist humidifier may make your lungs more comfortable. An expectorant (cough medicine that loosens phlegm) can help. Repeated episodes of bronchitis and bronchospasm may result in lung damage -- for example, chronic bronchitis, recurrent pneumonias, or emphysema. If you develop a fever, increased wheezing, chest pain, or severe shortness of breath, you should contact the doctor immediately. INHALED BRONCHODILATORS: You have received a treatment of and/or prescription for an inhaled bronchodilator -- a medication which stimulates the airways in the lung to dilate. This improves the flow of air in asthma, bronchitis, and emphysema. These medicines have some similarity to adrenaline, and can cause similar side effects: shakiness, racing heart, and a sense of nervousness. These side effects decrease with time. Contact your doctor if these side effects are severe. Do not over-use the medicine. Too-frequent use of the inhaler may make it ineffective. Call your doctor if the inhaler is not controlling your symptoms at the prescribed doses. STEROID MEDICATION: You have been given an injection of or oral medicine of the cortisone/ steroid class. This medication is used to control inflammation or allergy. Santiago t is usually only given for a short period of time, until the acute process subsides. There are usually no side effects from short-term use of cortisone-like medications. Some persons feel an increased sense of well-being and are not sleepy at bedtime. Long-term use of cortisone medications is best avoided, unless required for a severe condition. If your condition does not remit, or relapses after the course of corticosteroid medication, you should consult your physician. AZITHROMYCIN: Azithromycin (Zithromax) is a broad spectrum antibiotic in the same class as erythromycin. It can treat a variety of bacterial infections, but is most frequently used for respiratory infections. Azithromycin is extremely long-lasting. It accumulates in body tissues and continues to kill bacteria for many days. In order to improve absorption, Azithromycin should be taken at least one hour before or two hours after a meal. It does not have the same strong tendency to upset the stomach as erythromycin and is usually very well tolerated. Patients who have had a rash or other true allergic reactions to erythromycin should not take this medication. Call if you develop gastrointestinal distress, severe diarrhea, rash, hives, itching, or shortness of breath. USE OF ACETAMINOPHEN (Tylenol): Acetaminophen may be taken for pain relief or fever control. It's much safer than aspirin, offering a wider range of "safe" dosages. It is safe during . Some brand names are Tylenol, Panadol, Datril, Anacin 3, Tempra, and Liquiprin. Acetaminophen can be repeated every four hours. The following are maximum recommended dosages: >89 pounds or adults 650 mg to 900 mg Acetaminophen can be repeated every four hours. Maximum dose not to exceed 4000 mg a day. SMOKING: If you smoke, you should stop smoking. The tar and chemicals in cigarette smoke are harmful. Smoking has been shown to cause: emphysema chronic bronchitis lung cancer mouth and throat cancer stomach and pancreas cancer premature aging defects In addition, smoking increases ear and lung infections in children of smokers. FOLLOW-UP CARE: If you have been referred to a physician for follow-up care, call the physician s office for an appointment as you were instructed or within the next two days. If you experience worsening or a significant change in your symptoms, notify the physician immediately or return to the Emergency Department at any time for re-evaluation. Follow up with your OB physician this week as discussed. Return to ER for high fever, chest pain, worsening symptoms or concerns. Prescriptions: Albuterol Sulfate [Proair HFA Inhalation Aerosol 8.5 gm MDI] 2 puff IH Q4H PRN # 1 mdi PRN Reason: Azithromycin [Zithromax 250 mg Tablet] 250 mg PO ASDIR PRN #6 tablet PRN Reason: Prednisone [Deltasone 20 mg Tablet] 2 tab PO DAILY 4 Days Forms: Return to Work Referrals: JUANA DIMAS MD [Primary Care Provider] - Follow up as needed
[2016-06-18] MEDS ORDERED: PREDNISONE 20 MG TABLET PO ONE (17:50)
[2016-06-18 18:39] LABS: ABSOLUTE BASOPHILS # (AUTO) 0.1 10^3/uL (0.0-0.2); ABSOLUTE EOSINOPHILS # (AUTO) 0.2 10^3/uL (0.0-0.6); ABSOLUTE LYMPHOCYTES (AUTO) 2.7 10^3/uL (0.5-4.7); ABSOLUTE NEUT (AUTO) 7.9 10^3/uL (1.7-8.2); BASOPHILS % (AUTO) 0.4 % (0-2); EOSINOPHILS % (AUTO) 1.6 % (0-6); HEMOGLOBIN 10.9 g/dL (12.0-15.5); HGB HCT DIFFERENCE 0.7; LYMPHOCYTES % (AUTO) 22.8 % (13-45); MEAN CORPUSCULAR HEMOGLOBIN 28.5 pg (27.0-33.4); MEAN CORPUSCULAR VOLUME 84 fl (80-97); MONOCYTES % (AUTO) 8.5 % (3-13); RED BLOOD COUNT 3.81 10^6/uL (3.72-5.28); RED CELL DISTRIBUTION WIDTH 13.4 % (11.5-14.0); SEGMENTED NEUTROPHILS % (AUTO) 66.7 % (42-78); WHITE BLOOD COUNT 11.8 10^3/uL (4.0-10.5)
[2016-06-18 19:00] LABS: ALANINE AMINOTRANSFERASE 20 U/L (9-52); ALBUMIN 3.3 g/dL (3.5-5.0); ALKALINE PHOSPHATASE 136 U/L (38-126); ANION GAP 12 (5-19); ASPARTATE AMINO TRANSFERASE 23 U/L (14-36); BILIRUBIN,DIRECT 0.2 mg/dL (0.0-0.4); BILIRUBIN,TOTAL 0.4 mg/dL (0.2-1.3); BLOOD UREA NITROGEN 5 mg/dL (7-20); CALCIUM 9.3 mg/dL (8.4-10.2); CARBON DIOXIDE 21 mmol/L (22-30); CHLORIDE 107 mmol/L (98-107); CREATININE RESULT 0.59 mg/dL (0.52-1.25); GLUCOSE 86 mg/dL (75-110); POTASSIUM 3.9 mmol/L (3.6-5.0); SODIUM 139.8 mmol/L (137-145); TOTAL PROTEIN 6.4 g/dL (6.3-8.2)
--- NOTE | 2016-06-18 19:12 | EKG REPORT ---
SEVERITY:- ABNORMAL ECG - SINUS RHYTHM NONSPECIFIC T ABNORMALITIES, ANTERIOR LEADS : Confirmed by: Fatoumata Stout MD 18-Jun-2016 19:11:02
[2016-06-18 21:11] VITALS: BP 111/71
== END 2016-06-18 21:30 | disposition home or self-care (01) ==
LOC: ER 16:41
DX: J40 Bronchitis, not specified as acute or chronic (principal); R06.02 Shortness of breath; Z3A.32 32 weeks gestation of pregnancy
CPT/HCPCS: 93005; 99285; 36415; 85025; 80053; 71010; 93010; J7512

== ENCOUNTER 2016-07-27 10:28 | Inpatient (IN) | payer MEDICAID ==
[2016-07-27] MEDS ORDERED: MISOPROSTOL 0.2 MG TABLET ONE (10:35)
[2016-07-27] MEDS ORDERED: OXYTOCIN/NORMAL SALINE 20 UNIT/1,000 ML RTUINJ ONE (10:35)
[2016-07-27] MEDS ORDERED: LIDOCAINE 1% INJ-PF (10 MG/ML) 30 ML SDV ONE (10:35)
[2016-07-27] MEDS ORDERED: PENICILLIN G-K 5 MILLION UNIT VIAL ONE (10:35)
[2016-07-27] MEDS ORDERED: RINGERS SOLUTION,LACTATED 1,000 ML IV ONE (10:37)
[2016-07-27] MEDS ORDERED: PENICILLIN G POTASSIUM 5,000,000 UNIT in DEXTROSE 5%-WATER 100 ML IV ONE (10:37)
[2016-07-27] MEDS ORDERED: PENICILLIN G-K 5 MILLION UNIT VIAL IV SCH ×2 (11:00→14:38)
[2016-07-27 11:11] LABS: APPEARANCE,URINE CLEAR; BILIRUBIN,URINE NEGATIVE (NEGATIVE); GLUCOSE, URINE NEGATIVE (NEGATIVE); KETONES,URINE 20 mg/dL (NEGATIVE); LEUKOCYTE ESTERASE,URINE SMALL (NEGATIVE); NITRITE,URINE NEGATIVE (NEGATIVE); PROTEIN,URINE NEGATIVE (NEGATIVE); URINE SPECIFIC GRAVITY 1.005; UROBILINOGEN,URINE NEGATIVE mg/dL (<2.0)
[2016-07-27 11:17] LABS: ABSOLUTE BASOPHILS # (AUTO) 0.1 10^3/uL (0.0-0.2); ABSOLUTE EOSINOPHILS # (AUTO) 0.1 10^3/uL (0.0-0.6); ABSOLUTE LYMPHOCYTES (AUTO) 2.4 10^3/uL (0.5-4.7); ABSOLUTE MONOCYTES (AUTO) 0.8 10^3/uL (0.1-1.4); ABSOLUTE NEUT (AUTO) 7.6 10^3/uL (1.7-8.2); BASOPHILS % (AUTO) 0.6 % (0-2); EOSINOPHILS % (AUTO) 0.7 % (0-6); HEMATOCRIT 33.5 % (36.0-47.0); HEMOGLOBIN 11.5 g/dL (12.0-15.5); LYMPHOCYTES % (AUTO) 22.1 % (13-45); MEAN CORPUSCULAR HEMOGLOBIN 28.9 pg (27.0-33.4); MEAN CORPUSCULAR HGB CONC 34.2 g/dL (32.0-36.0); MEAN CORPUSCULAR VOLUME 85 fl (80-97); RED BLOOD COUNT 3.97 10^6/uL (3.72-5.28); RED CELL DISTRIBUTION WIDTH 14.6 % (11.5-14.0); SEGMENTED NEUTROPHILS % (AUTO) 69.6 % (42-78)
[2016-07-27 11:27] LABS: URINE BARBITURATES SCREEN NEGATIVE; URINE METHADONE SCREEN NEGATIVE; URINE OPIATES LOW NEGATIVE; URINE PHENCYCLIDINE SCREEN NEGATIVE
[2016-07-27] MEDS ORDERED: IBUPROFEN 800 MG TABLET ONE (11:47)
--- NOTE | 2016-07-27 12:59 | Delivery Summary ---
Del Sum A-C Datetime Report Generated by CPN: 07/27/2016 12:59 DELIVERY PERSONNEL DELIVERY PERSONNEL: [phone] Delivery Doctor:: Nichol Riggs CNM Labor and Delivery Nurse:: Julissa Ambriz RNcase management associate Nurse:: ROSA Gaona Nursery Nurse:: DAYANNA Kaplan Tech/BROADCAST FIELD SUPERVISOR: Karin Nunez CNA II MATERNAL INFORMATION Delivery Anesthesia: None Medications After Delivery: Pitocin Bolus-Please Comment; Pitocin Drip 20 Units/1000ml NSS Meds After Delivery Comment: Pitocin 20 units in 1000 ml nss open Estimated Blood Loss (ml): 200 Maternal Complications: Precipitous Labor (<3hrs) Provider Comments: Precipitous labor, progressed to complete, head delivered, nuchal arm noted, posterior arm delivered, body followed without difficulty. Infant with spontaneous cry and respirations to maternal abdomen, cord clamped X2 after 2 min delay, cut free by pts support person, spontaneous delivery of intact placenta via zhao mechanism, appears intact, 3 VC, Vagina and perineum inspected, small superficial lacerations noted, not bleeding, not repaired, hemostasis acheived with external fundal massage and IV pitocin. Routine pp care, mother and baby in stable condition. LABOR SUMMARY EDC: 07/29/2016 00:00 No. Babies in Womb: 1 Attempted: No Labor Anesthesia: None LABOR INFORMATION Reason for Induction: Not Applicable Onset of Labor: 07/27/2016 08:15 Complete Dilatation: 07/27/2016 11:16 Oxytocin: N/A Group B Beta Strep: Positive Antibiotics # of Doses: 1 Antibiotics Time of Last Dose: 1042 Name of Antibiotic Given: penicillin Steroids Given: None Reason Steroids Not Administered: Not Applicable MEMBRANES Membranes Rupture Method: Spontaneous Rupture of Membranes: 07/27/2016 08:15 Length of Rupture (hr): 3.05 Amniotic Fluid Color: Clear Amniotic Fluid Amount: Scant Amniotic Fluid Odor: Normal STAGES OF LABOR Stage 1 hr: 3 Stage 1 min: 1 Stage 2 hr: 0 Stage 2 min: 2 Stage 3 hr: 0 Stage 3 min: 3 Total Time in Labor hr: 3 Total Time in Labor min: 6 VAGINAL DELIVERY Episiotomy: None Laceration Extension: N/A Laceration Type: None Laceration Repair: Not Applicable Laceration Repair Note: n/a Sponge Count Correct: N/A Sharps Count Correct: N/A CSECTION DELIVERY Primary Indication: N/A Secondary Indication: N/A CSection Incidence: N/A Labor: N/A Elective: N/A CSection Incision: N/A BABY A INFORMATION Delivery Date/Time: 07/27/2016 11:18 Method of Delivery: Vaginal Born in Route : No : N/A Forceps: N/A Vacuum Extraction: N/A Shoulder Dystocia : No PRESENTATION/POSITION BABY A Presentation: Cephalic Cephalic Presentation: Vertex Vertex Position: Left Occipital Anterior Breech Presentation: N/A PLACENTA INFORMATION BABY A Placenta Delivery Time : 07/27/2016 11:21 Placenta Method of Delivery: Spontaneous Placenta Status: Delivered SCORES BABY A Heart Rate 1 min: >100 bpm Resp Effort 1 min: Good Cry Reflex Irritability 1 min: Cough or Sneeze or Pulls Away Muscle Tone 1 min: Active Motion Color 1 min: Blue/Pale Resuscitation Effort 1 min: Tactile Stimulation SCORE 1 MIN: 8 Heart Rate 5 min: >100 bpm Resp Effort 5 min: Good Cry Reflex Irritability 5 min: Cough or Sneeze or Pulls Away Muscle Tone 5 min: Active Motion Color 5 min: Body [place], Extremities Blue Resuscitation Effort 5 min: N/A SCORE 5 MIN: 9 Resuscitation Effort 10 min: N/A INFORMATION BABY A Gestational Age at Delivery: 39.5 Gestational Status: Full Term- 39- 40.6 Weeks Infant Outcome : Liveborn Condition : Stable Infant Sex: Male IDENTIFICATION BABY A Infant Verification Date/Time: 07/27/2016 11:25 ID Band Number: [id number] Mother's Name Verified: Yes Infant RN Verifying : A. Bloom RN L. Roulund RN WEIGHT/LENGTH BABY A Birthweight (gm): 3070 Infant Weight (lb): 6 Infant Weight (oz): 12 CORD INFORMATION BABY A No. Cord Vessels: 3 Nuchal Cord : N/A Cord Blood Taken: Yes-For Eval (Mom's Blood Type - or O+) Suction: Mouth; Nose ASSESSMENT BABY A Infant Complications: None Physical Findings at Delivery: Within Normal Limits Infant Respirations: Appears Normal Skin to Skin: Yes Skin to Skin Time (min): 45 Foxer/ALS Called : No Care By: A Nitin RN Transferred To: Remains with Mother BABY B INFORMATION : N/A SIGNATURES Assignment: Sharee Camarillo MD Signature: with User ID: Ellyn : with User ID: [email or web address]
[2016-07-27] MEDS ORDERED: DIPH/PERTUSS(ACELL)/TETANUS VAC/PF 0.5 ML SYR (>=10YO) IM PRN (13:23)
[2016-07-27] MEDS ORDERED: MEASLES,MUMPS&RUBELLA VACC/PF 0.5 ML VIAL SUBCUT PRN (13:23)
[2016-07-27] MEDS ORDERED: ZOLPIDEM TARTRATE 5 MG TABLET PO PRN (13:23)
[2016-07-27] MEDS ORDERED: ACETAMINOPHEN WITH CODEINE #3 TABLET PO PRN (13:23)
[2016-07-27] MEDS ORDERED: BENZOCAINE/MENTHOL AEROSOL SPRAY 56 ML TOP PRN (13:23)
[2016-07-27] MEDS ORDERED: OXYTOCIN/NORMAL SALINE 1,000 ML IV PRN (13:23)
[2016-07-27] MEDS ORDERED: DIBUCAINE 1% OINTMENT 28 GM TP PRN (13:23)
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
[2016-07-27] MEDS ORDERED: PENICILLIN G POTASSIUM 2,500,000 UNIT in DEXTROSE 5%-WATER 50 ML IV SCH (14:38)
[2016-07-27] MEDS: IBUPROFEN 800 MG TABLET PO SCH ×2 (17:15→21:03)
[2016-07-27] MEDS: DOCUSATE SODIUM 100 MG CAPSULE PO SCH (17:28)
[2016-07-27] MEDS: FERROUS SULFATE 325 MG TABLET PO SCH (17:29)
[2016-07-27] MEDS: ACETAMINOPHEN WITH CODEINE #3 TABLET PO PRN (19:37)
[2016-07-28] MEDS: IBUPROFEN 800 MG TABLET PO SCH ×3 (06:07→21:04)
[2016-07-28 06:42] LABS: MEAN CORPUSCULAR HEMOGLOBIN 28.8 pg (27.0-33.4); MEAN CORPUSCULAR HGB CONC 34.3 g/dL (32.0-36.0); MEAN CORPUSCULAR VOLUME 84 fl (80-97); RED BLOOD COUNT 3.81 10^6/uL (3.72-5.28); WHITE BLOOD COUNT 10.8 10^3/uL (4.0-10.5)
[2016-07-28] MEDS ORDERED: DIPHENHYDRAMINE HCL 50 MG CAPSULE PO PRN (09:12)
[2016-07-28] MEDS: DOCUSATE SODIUM 100 MG CAPSULE PO SCH ×2 (09:12→18:07)
[2016-07-28] MEDS: SENNOSIDES/DOCUSATE 8.6-50 MG 1 EACH TABLET PO SCH (09:12)
[2016-07-28] MEDS: PRENATAL VITAMIN W-O CA NO5/FE FUMARATE/FA CAPSULE PO SCH (09:12)
[2016-07-28] MEDS: FERROUS SULFATE 325 MG TABLET PO SCH ×2 (09:14→18:08)
--- NOTE | 2016-07-28 09:14 | PDOC PROGRESS REPORT ---
Subjective-OB Subjective: Post Delivery Day:1 21 year old. Denies any needs at this time, voiding without difficulty, tolerating diet, lochia is stable, pain moderately well controlled, breast feeding well, states her legs are itchy. Physical Exam (OB) Vital Signs: Temp Pulse Resp BP Pulse Ox 97.9 F 65 17 115/69 98 07/28/16 07:54 07/28/16 07:54 07/28/16 07:54 07/28/16 07:54 07/28/16 07:54 Intake & Output 07/27/16 07/28/16 07/29/16 06:59 06:59 06:59 Weight 59 kg - Lochia Lochia Amount: Scant < 10 ml Lochia Color: Rubra/Red - Abdomen Description: Tender, Soft, Round Hernia Present: No Fundal Description: Firm, Midline Fundal Height: u/u - u/2 - Extremities Lower extremities: Other - small scratch lora, possible bug bites. Objective-Diagnostic Laboratory: 07/28/16 06:24 07/27/16 07/27/16 07/27/16 10:30 10:51 10:51 WBC 11.0 H RBC 3.97 Hgb 11.5 L Hct 33.5 L MCV 85 MCH 28.9 MCHC 34.2 RDW 14.6 H Plt Count 266 Seg Neutrophils % 69.6 Lymphocytes % 22.1 Monocytes % 7.0 Eosinophils % 0.7 Basophils % 0.6 Absolute Neutrophils 7.6 Absolute Lymphocytes 2.4 Absolute Monocytes 0.8 Absolute Eosinophils 0.1 Absolute Basophils 0.1 Urine Color YELLOW Urine Appearance CLEAR Urine pH 7.0 Ur Specific [place] 1.005 Urine Protein NEGATIVE Urine Glucose (UA) NEGATIVE Urine Ketones 20 H Urine Blood NEGATIVE Urine Nitrite NEGATIVE Ur Leukocyte Esterase SMALL H Blood Type O POSITIVE Antibody Screen NEGATIVE 07/28/16 06:24 WBC 10.8 H RBC 3.81 Hgb 11.0 L Hct 32.0 L MCV 84 MCH 28.8 MCHC 34.3 RDW 15.0 H Plt Count 269 Seg Neutrophils % Lymphocytes % Monocytes % Eosinophils % Basophils % Absolute Neutrophils Absolute Lymphocytes Absolute Monocytes Absolute Eosinophils Absolute Basophils Urine Color Urine Appearance Urine pH Ur Specific [place] Urine Protein Urine Glucose (UA) Urine Ketones Urine Blood Urine Nitrite Ur Leukocyte Esterase Blood Type Antibody Screen Assessment and Plan(PN) - Assessment and Plan (1) Vaginal delivery Is this a current diagnosis for this admission?: YesPlan: routine post care benadryl - Time Spent with Patient Time with patient: Less than 15 minutes Critical Time spent with patient: Less than 15 minutes Medications reviewed and adjusted accordingly: Yes - Disposition Anticipated Discharge: Home Within: within 24 hours
[2016-07-28] MEDS: ACETAMINOPHEN WITH CODEINE #3 TABLET PO PRN (16:49)
[2016-07-28] MEDS ORDERED: ALBUTEROL SULFATE HFA (90 MCG/PUFF) 200 PUFF/8.5 GM MDI IH PRN (17:54)
[2016-07-28] MEDS ORDERED: ALBUTEROL SULFATE HFA (90 MCG/PUFF) 200 PUFF/8.5 GM MDI IH ONE (20:51)
[2016-07-29] MEDS: IBUPROFEN 800 MG TABLET PO SCH ×2 (05:55→13:03)
[2016-07-29 09:10] VITALS: BP 117/70
[2016-07-29] MEDS: DOCUSATE SODIUM 100 MG CAPSULE PO SCH (09:31)
[2016-07-29] MEDS: SENNOSIDES/DOCUSATE 8.6-50 MG 1 EACH TABLET PO SCH (09:31)
[2016-07-29] MEDS: PRENATAL VITAMIN W-O CA NO5/FE FUMARATE/FA CAPSULE PO SCH (09:37)
[2016-07-29] MEDS: FERROUS SULFATE 325 MG TABLET PO SCH (09:37)
--- NOTE | 2016-07-29 09:51 | PDOC DISCHARGE SUMMARY ---
Final Diagnosis Discharge Date: 07/29/16 - Final Diagnosis (1) Vaginal delivery Is this a current diagnosis for this admission?: Yes (2) Acute blood loss anemia Is this a current diagnosis for this admission?: Yes Discharge Data - Discharge Medication Home Medications: Vit No.130/Iron/FA [ Tablet] 1 each PO DAILY 04/29/15 Albuterol Sulfate [Proair HFA Inhalation Aerosol 8.5 gm MDI] 2 puff IH Q4H PRN # 1 mdi 06/18/16 Docusate Sodium [Colace 100 mg Capsule] 100 mg PO BID #30 capsule 07/29/16 Ferrous Sulfate [Feosol 325 mg Tablet] 325 mg PO BID #60 tablet 07/29/16 Ibuprofen [Motrin 800 mg Tablet] 800 mg PO Q8 #60 tablet 07/29/16 Gestational Age: 39.5 Reason(s) for Admission: Onset of Labor, Group B Strep Positive Procedures: NST Intrapartum Procedure(s): Spontaneous Vaginal Delivery - [place] Data Baby 1 Male at 1 minute: 8 at 5 minutes: 9 Weight: 3070 kg Home with Mother: Yes Complications: No - Diagnosis Test Laboratory: Temp Pulse Resp BP Pulse Ox 97.9 F 80 16 117/70 98 07/29/16 09:09 07/29/16 09:09 07/29/16 09:09 07/29/16 09:09 07/29/16 09:09 07/27/16 07/27/16 07/28/16 10:30 10:51 06:24 RBC 3.97 3.81 Hgb 11.5 L 11.0 L Hct 33.5 L 32.0 L Urine Opiates Screen NEGATIVE - Discharge information/Instructions Discharge Activity: Activity As Tolerated, Pelvic Rest, No tub bath Discharge Diet: Regular Disposition: HOME, SELF-CARE Follow up with: [facility] in: 4, Weeks
== END 2016-07-29 16:40 | disposition home or self-care (01) | DRG 775 ==
LOC: LC 10:28 → LR 10:33 → 2S 13:55
PROVIDERS: ADMIT Obstetrics & Gynecology; ATTEND Obstetrics & Gynecology
PROC: 10E0XZZ Delivery of Products of Conception, External Approach (ICD-10-PCS; principal; 2016-07-27)
PROC: 4A1HXCZ Monitoring of Products of Conception, Cardiac Rate, External Approach (ICD-10-PCS; 2016-07-27)
DX: O99.824 Streptococcus B carrier state complicating childbirth (principal); O99.334 Smoking (tobacco) complicating childbirth; O62.3 Precipitate labor; D64.9 Anemia, unspecified; O69.89X0 Labor and delivery complicated by other cord complications, not applicable or unspecified; O70.0 First degree perineal laceration during delivery; O99.02 Anemia complicating childbirth; Z3A.39 39 weeks gestation of pregnancy; Z37.0 Single live birth; F17.210 Nicotine dependence, cigarettes, uncomplicated; Z62.810 Personal history of physical and sexual abuse in childhood
CPT/HCPCS: 36415; 80307; 81005; 85025; 85027; 86592; 86850; 86900; 86901; J2540; J2590; J3490

== ENCOUNTER 2016-11-15 05:26 | Day surgery (SDC) | payer MEDICAID ==
[2016-11-13 12:33] LABS: APPEARANCE,URINE SLIGHTLY-CLOUDY; BILIRUBIN,URINE NEGATIVE (NEGATIVE); GLUCOSE, URINE NEGATIVE (NEGATIVE); KETONES,URINE NEGATIVE (NEGATIVE); LEUKOCYTE ESTERASE,URINE SMALL (NEGATIVE); NITRITE,URINE NEGATIVE (NEGATIVE); PROTEIN,URINE NEGATIVE (NEGATIVE); URINE SPECIFIC GRAVITY 1.025; UROBILINOGEN,URINE NEGATIVE mg/dL (<2.0)
[2016-11-13 12:37] LABS: HEMATOCRIT 41.1 % (36.0-47.0); HGB HCT DIFFERENCE 0.9; MEAN CORPUSCULAR HEMOGLOBIN 29.5 pg (27.0-33.4); MEAN CORPUSCULAR VOLUME 87 fl (80-97); RED BLOOD COUNT 4.74 10^6/uL (3.72-5.28); RED CELL DISTRIBUTION WIDTH 15.2 % (11.5-14.0); WHITE BLOOD COUNT 5.5 10^3/uL (4.0-10.5)
[~2016-11-15 05:26] MED LIST: CEFAZOLIN 1 GM/D5W RTU 1 GM/50 ML RTUPB IV PRN; LACTATED RINGERS 1000 ML IV PRN; LIDOCAINE 0.5% INJ-PF (5 MG/ML) 50 ML SDV SUBCUT PRN
[2016-11-15] MEDS ORDERED: BUPIVACAINE HCL 0.25 % INJ/PF (2.5 MG/1 ML) 30 ML VIAL ONE (05:59)
[2016-11-15] MEDS ORDERED: ALBUTEROL SULFATE 0.083% NEB 2.5 MG/3 ML AMPUL NEB ONE ×2 (06:33→06:45)
[2016-11-15] MEDS ORDERED: FAMOTIDINE INJ/PF 20 MG/2 ML SDV IV ONE ×2 (06:33→06:45)
[2016-11-15] MEDS ORDERED: SCOPOLAMINE HYDROBROMIDE 1.5 MG PATCH.TD72 ONE (06:33)
[2016-11-15] MEDS ORDERED: LIDOCAINE 2% INJ-PF (20 MG/ML) 10 ML AMPUL ONE (06:39)
[2016-11-15] MEDS ORDERED: DEXAMETHASONE SOD PHOSPHATE INJ 4 MG/1 ML VIAL ONE (06:39)
[2016-11-15] MEDS ORDERED: ONDANSETRON HCL INJ/PF 4 MG/2 ML SDV ONE (06:39)
[2016-11-15] MEDS ORDERED: MIDAZOLAM 2 MG/2 ML INJ ONE (06:39)
[2016-11-15] MEDS ORDERED: PROPOFOL INJ 200 MG/20 ML VIAL IV ONE (06:39)
[2016-11-15] MEDS ORDERED: FENTANYL CITRATE INJ/PF 100 MCG/2 ML AMPUL ONE (06:39)
[2016-11-15] MEDS ORDERED: ACETAMINOPHEN 100 ML IV ONE (06:40)
[2016-11-15] MEDS ORDERED: SCOPOLAMINE HYDROBROMIDE 1.5 MG PATCH.TD72 TD ONE (06:45)
[2016-11-15] MEDS ORDERED: KETOROLAC TROMETHAMINE 60 MG/2 ML SDV ONE (07:01)
[2016-11-15] MEDS ORDERED: DIPHENHYDRAMINE HCL 50 MG/ML VIAL IV PRN (07:55)
[2016-11-15] MEDS ORDERED: FENTANYL CITRATE INJ/PF 100 MCG/2 ML AMPUL IV PRN ×3 (07:55)
[2016-11-15] MEDS ORDERED: MEPERIDINE HCL/PF INJ 25 MG/1 ML DISP.SYRIN IV PRN (07:55)
[2016-11-15] MEDS ORDERED: ONDANSETRON HCL INJ/PF 4 MG/2 ML SDV IV PRN ×2 (07:55→08:45)
[2016-11-15] MEDS ORDERED: PROMETHAZINE HCL INJ 25 MG/1 ML VIAL IV PRN ×2 (07:55)
[2016-11-15] MEDS: FENTANYL CITRATE INJ/PF 100 MCG/2 ML AMPUL ONE ×2 (08:29→08:40)
[2016-11-15] MEDS ORDERED: ONDANSETRON 4 MG TAB.RAPDIS PO PRN (08:46)
[2016-11-15] MEDS ORDERED: HYDROMORPHONE HCL INJ/PF 2 MG/ML AMPULE INJ PRN (08:49)
[2016-11-15] MEDS ORDERED: IBUPROFEN 800 MG TABLET PO PRN (08:51)
[2016-11-15] MEDS ORDERED: OXYCODONE-ACETAMINOPHEN 5-325 MG TABLET PO PRN ×2 (08:52→08:53)
[2016-11-15] MEDS ORDERED: RINGERS SOLUTION,LACTATED 1,000 ML IV PRN (08:54)
[2016-11-15] MEDS ORDERED: LORAZEPAM INJ 2 MG/1 ML VIAL ONE (08:55)
[2016-11-15 13:30] VITALS: BP 144/90
[2016-11-15] MEDS ORDERED: SUCCINYLCHOLINE CHLORIDE INJ 200 MG/10 ML VIAL ONE (16:52)
--- NOTE | 2016-11-22 13:24 | Operative Report ---
Operative Report DATE OF SURGERY: 11/15/16 PREOPERATIVE DIAGNOSIS: Undesired Fertiltiy. History of severe PP depression. POSTOPERATIVE DIAGNOSIS: NNEKA - s/p Bilateral Occlusion OPERATION: L/S Bilateral Tubal Ligation with Filschie Clips SURGEON: CHRISTI TRINH ANESTHESIA: GA TISSUE REMOVED OR ALTERED: None COMPLICATIONS: None ESTIMATED BLOOD LOSS: less than 5ml INTRAOPERATIVE FINDINGS: Normal pelvis, normal tubes, ovaries, normal appendix, Bilateral occlusion with filschie x 2 PROCEDURE: Anesthesiologist: Jena BECKWITH, Estefania Stanton CRNA Complications: None IV fluids: [900ml] Urine output: [150ml] Indications: [21yo with recent severe PP depression now resolved. She is accompanied by her partner and they both desire permanent sterilization for contraception. Other methods of contraception were reviewed with the patient extensively. The risks/benefits/alternatives were reviewed and she desired to proceed with planned procedure with permanent sterilization. ] Procedure: The patient was taken to the operating room where general anesthesia was obtained without difficulty. The patient was then examined under anesthesia with findings as noted above. She was then placed in dorsal supine lithotomy position and prepped and draped in the normal sterile fashion. Ryan speculum was then placed in the patient's vagina and the anterior lip of the cervix grasped with a single-tooth tenaculum. A Gamify uterine manipulator was then advanced into the uterus to provide a means of manipulation of the uterus. The speculum and tenaculum were then removed from the patient's cervix and vagina. Attention was then turned to the patient's abdomen where a 5 mm infraumbilical skin incision was then made. The Optiview trocar with 0 laparoscope was then advanced without difficulty under direct visualization with the Optiview trocar. This was performed while tenting the abdominal wall and these will fashion. Intraperitoneal placement was confirmed by the direct visualization. Pneumoperitoneum was then obtained with approximately 4 L carbon dioxide gas. Survey of the patient's abdomen and pelvis revealed findings as noted above. A second skin incision was then made approximately 2 cm superior to pubic symphysis in the midline. The incision were made under direct visualization with the laparoscope. The second trochar was then advanced under direct visualization of the laparoscope at the site. The right fallopian tube was then identified and followed out to the fimbriated end and Filschie clip x 2 was placed in the mid ampullary portion of the fallopian tube. Attention was then turned to the left adnexa at which time the left fallopian tube was identified and followed out to the fimbriated end and Filschie clips x 2 were placed in the mid ampullary portion of the fallopian tube. All operative sites were visualized and noted to be hemostatic. The additional trochar were removed under direct visualization. The 5 mm trocar was then removed after abdominal insufflation was removed. The fascia at the 10 mm trocar site was closed with 0 Vicryl on a UR 6 needle. The skin at all trocar sites were closed with 3-0 Monocryl in a subcuticular fashion with overlying Dermabond. No antibiotics were indicated for this procedure. After completion of skin closure of the trocar sites attention was then turned to the vagina where the Hulka uterine manipulator was removed and the bivalve speculum was replaced. Silver nitrate was applied to the tenaculum sites for hemostasis and the speculum was removed. Sponge lap needle and instrument counts were correct 3. The patient tolerated the procedure well and was taken to the recovery area awake and in stable condition.
== END 2016-11-15 11:30 | disposition home or self-care (01) ==
LOC: OROUT 05:26
PROVIDERS: ATTEND Student in an Organized Health Care Education/Training Program
PROC: 0UL74CZ Occlusion of Bilateral Fallopian Tubes with Extraluminal Device, Percutaneous Endoscopic Approach (ICD-10-PCS; principal; 2016-11-15 07:30)
DX: Z30.2 Encounter for sterilization (principal); J45.909 Unspecified asthma, uncomplicated; D64.9 Anemia, unspecified; F32.9 Major depressive disorder, single episode, unspecified; F41.9 Anxiety disorder, unspecified; Z88.2 Allergy status to sulfonamides; Z88.3 Allergy status to other anti-infective agents; Z88.5 Allergy status to narcotic agent; Z87.891 Personal history of nicotine dependence; Z79.899 Other long term (current) drug therapy
CPT/HCPCS: 36415; 85027; 81005; 81025; 94640; 58671; J2250; J0690; J1100; J1885; J3010; J3490 ×2; J2060; J0330; J2405; S0020; J2704; S0028; J0131; 851

== ENCOUNTER 2017-02-24 12:44 | Emergency (ER) | payer MEDICAID ==
[2017-02-24] MEDS ORDERED: OXYCODONE-ACETAMINOPHEN 5-325 MG TABLET PO ONE ×2 (13:45→18:00)
[2017-02-24] MEDS ORDERED: NORMAL SALINE 1000 ML 1,000 ML IV ONE (13:45)
--- NOTE | 2017-02-24 13:46 | ER Document Report ---
ED Medical Screen (RME) - General Chief Complaint: Back Pain Stated Complaint: FALL/BACK PAIN Time Seen by Provider: 02/24/17 13:40 Mode of Arrival: Wheelchair Information source: Patient Notes: pt fell on radiator last night. Pt c/o back pain all over and abd pain. Pt concerned about splenic injury TRAVEL OUTSIDE OF THE [place] IN LAST 30 DAYS: No - Related Data Allergies/Adverse Reactions: hydrocodone bitartrate [From Vicodin] Allergy (Verified 02/24/17 12:47) itchy Sulfa (Sulfonamide Antibiotics) Allergy (Verified 02/24/17 12:47) Edema sulfamethoxazole [From Septra] Allergy (Verified 02/24/17 12:47) trimethoprim [From Septra] Allergy (Verified 02/24/17 12:47) Edema Past Medical History - Past Medical History Cardiac Medical History: Denies: Hx Coronary Artery Disease, Hx Heart Attack, Hx Hypertension Pulmonary Medical History: Denies: Hx Asthma, Hx Bronchitis, Hx COPD, Hx Pneumonia Neurological Medical History: Denies: Hx Cerebrovascular Accident, Hx Seizures Musculoskeltal Medical History: Denies Hx Arthritis Past Surgical History: Reports: Hx Oral Surgery, Hx Tonsillectomy - Immunizations Immunizations up to date: Yes Hx Diphtheria, Pertussis, Tetanus Vaccination: Yes Physical Exam - Vital signs Vitals: Temp Pulse Resp BP Pulse Ox 98.5 F 109 H 22 H 111/76 100 02/24/17 12:54 02/24/17 12:54 02/24/17 12:54 02/24/17 12:54 02/24/17 12:54 - Back Back: Tender - diffuse tenderness, ecchymosis to left flank Course - Vital Signs Vital signs: Temp Pulse Resp BP Pulse Ox 98.5 F 109 H 22 H 111/76 100 02/24/17 12:54 02/24/17 12:54 02/24/17 12:54 02/24/17 12:54 02/24/17 12:54
[2017-02-24 14:15] LABS: AMORPHOUS SEDIMENT,URINE TRACE /HPF; APPEARANCE,URINE CLOUDY; BILIRUBIN,URINE NEGATIVE (NEGATIVE); GLUCOSE, URINE NEGATIVE (NEGATIVE); KETONES,URINE TRACE mg/dL (NEGATIVE); LEUKOCYTE ESTERASE,URINE MODERATE (NEGATIVE); NITRITE,URINE POSITIVE (NEGATIVE); PROTEIN,URINE 100 mg/dL (NEGATIVE); URINE SPECIFIC GRAVITY 1.015; UROBILINOGEN,URINE NEGATIVE mg/dL (<2.0)
[2017-02-24 14:34] LABS: ABSOLUTE LYMPHOCYTES (AUTO) 2.1 10^3/uL (0.5-4.7); ABSOLUTE MONOCYTES (AUTO) 1.2 10^3/uL (0.1-1.4); ABSOLUTE NEUT (AUTO) 10.7 10^3/uL (1.7-8.2); BASOPHILS % (AUTO) 0.2 % (0-2); EOSINOPHILS % (AUTO) 0.3 % (0-6); HEMATOCRIT 42.7 % (36.0-47.0); HEMOGLOBIN 14.4 g/dL (12.0-15.5); HGB HCT DIFFERENCE 0.5; LYMPHOCYTES % (AUTO) 15.1 % (13-45); MEAN CORPUSCULAR HGB CONC 33.7 g/dL (32.0-36.0); MEAN CORPUSCULAR VOLUME 86 fl (80-97); MONOCYTES % (AUTO) 8.7 % (3-13); RED BLOOD COUNT 4.95 10^6/uL (3.72-5.28); RED CELL DISTRIBUTION WIDTH 13.8 % (11.5-14.0); SEGMENTED NEUTROPHILS % (AUTO) 75.7 % (42-78); WHITE BLOOD COUNT 14.2 10^3/uL (4.0-10.5)
--- NOTE | 2017-02-24 15:06 | RADIOLOGY REPORT (SQ) ---
EXAM DESCRIPTION: CT LUMBAR SPINE WITHOUT COMPLETED DATE/TIME: 02/24/2017 2:43 pm REASON FOR STUDY: fall COMPARISON: None. TECHNIQUE: Axial images acquired through the lumbar spine without intravenous contrast. Images revi ewed with lung, soft tissue and bone windows. Reconstructed coronal and sagittal MPR images reviewed . All images stored on PACS. All CT scanners at this facility use dose modulation, iterative reconstruction, and/or weight based d osing when appropriate to reduce radiation dose to as low as reasonably achievable (ALARA). [facility]: Dose Right [facility]: CareDose [facility]: Dose Right [facility]: Teradose 4D [facility]: [employer] RADIATION DOSE: mGy. LIMITATIONS: None. FINDINGS: SEGMENTATION: Normal. No transitional anatomy. ALIGNMENT: Grade 1 spondylolisthesis L5 on S1 with chronic bilateral spondylolysis/ pars defects at L 5. VERTEBRAL BODIES: No fractures. No dislocation. No acute findings. DISCS: No significant protrusions. Study limited by lack of intrathecal contrast. PEDICLES, TRANSVERSE PROCESSES: No fractures. No dislocation. No acute findings. FACETS, POSTERIOR ELEMENTS: Spina bifida occulta L5. Chronic pars defects. HARDWARE: None in the spine. VISUALIZED RIBS: No fractures. SOFT TISSUES: No significant or acute finding in adjacent soft tissues. OTHER: No other significant finding. IMPRESSION: Chronic pars defects L5 with grade 1 spondylolisthesis. No acute fracture. TECHNICAL DOCUMENTATION: JOB ID: [id number] Quality ID # [id number]: Final reports with documentation of one or more dose reduction techniques (e.g., Au tomated exposure control, adjustment of the mA and/or kV according to patient size, use of iterative reconstruction technique) 2010 [employer]- All Rights Reserved
--- NOTE | 2017-02-24 15:07 | RADIOLOGY REPORT (SQ) ---
EXAM DESCRIPTION: CT THORACIC SPINE WITHOUT COMPLETED DATE/TIME: 02/24/2017 2:43 pm REASON FOR STUDY: fall COMPARISON: None. TECHNIQUE: Axial images acquired through the thoracic spine without intravenous contrast. Images re viewed with lung, soft tissue and bone windows. Reconstructed coronal and sagittal MPR images review ed. Images stored on PACS. All CT scanners at this facility use dose modulation, iterative reconstruction, and/or weight based d osing when appropriate to reduce radiation dose to as low as reasonably achievable (ALARA). [facility]: Dose Right [facility]: CareDose [facility]: Dose Right [facility]: Teradose 4D [facility]: [employer] RADIATION DOSE: mGy. LIMITATIONS: None. FINDINGS: VISUALIZED LUNGS: No acute opacities. No pneumothorax. SOFT TISSUES: No soft tissue swelling. No masses. VERTEBRAL BODIES: No fractures. No dislocation. No acute findings. DISCS: No significant disc space narrowing. ALIGNMENT: Normal. TRANSVERSE PROCESSES, POSTERIOR ELEMENTS: No fractures. No dislocation. No acute findings. HARDWARE: None in the spine. VISUALIZED RIBS: No fractures. OTHER: No other significant finding. IMPRESSION: NORMAL CT OF THE THORACIC SPINE. TECHNICAL DOCUMENTATION: JOB ID: [id number] Quality ID # [id number]: Final reports with documentation of one or more dose reduction techniques (e.g., Au tomated exposure control, adjustment of the mA and/or kV according to patient size, use of iterative reconstruction technique) 2010 [address] [employer]- All Rights Reserved
[2017-02-24 15:44] LABS: ALANINE AMINOTRANSFERASE 187 U/L (9-52); ALBUMIN 3.9 g/dL (3.5-5.0); ALKALINE PHOSPHATASE 70 U/L (38-126); ANION GAP 11 (5-19); ASPARTATE AMINO TRANSFERASE 51 U/L (14-36); BILIRUBIN,DIRECT 0.4 mg/dL (0.0-0.4); BILIRUBIN,TOTAL 0.6 mg/dL (0.2-1.3); BLOOD UREA NITROGEN 11 mg/dL (7-20); CARBON DIOXIDE 25 mmol/L (22-30); CHLORIDE 106 mmol/L (98-107); CREATININE RESULT 0.71 mg/dL (0.52-1.25); GLUCOSE 94 mg/dL (75-110); POTASSIUM 3.7 mmol/L (3.6-5.0); TOTAL PROTEIN 6.7 g/dL (6.3-8.2)
[2017-02-24] MEDS ORDERED: CEFTRIAXONE 1 GM/D5W RTU 1 GM/50 ML RTUPB IV ONE (15:49)
[2017-02-24] MEDS ORDERED: NORMAL SALINE 1000 ML 1,000 ML IV PRN (15:49)
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
[2017-02-24] MEDS ORDERED: MORPHINE SULFATE 10 MG/ML INJ IV ONE (15:55)
[2017-02-24 16:22] LABS: URINE BARBITURATES SCREEN NEGATIVE; URINE METHADONE SCREEN NEGATIVE; URINE OPIATES LOW NEGATIVE; URINE PHENCYCLIDINE SCREEN NEGATIVE
--- NOTE | 2017-02-24 17:34 | RADIOLOGY REPORT (SQ) ---
EXAM DESCRIPTION: CT CHEST WITH COMPLETED DATE/TIME: 02/24/2017 5:01 pm REASON FOR STUDY: thoracic/lumbar back pain after fall COMPARISON: None. TECHNIQUE: CT scan of the chest performed using helical scanning technique with dynamic intravenous contrast injection. Images reviewed with lung, soft tissue and bone windows. Reconstructed coronal and sagittal MPR images reviewed. All images stored on PACS. All CT scanners at this facility use dose modulation, iterative reconstruction, and/or weight based d osing when appropriate to reduce radiation dose to as low as reasonably achievable (ALARA). [facility]: Dose Right [facility]: CareDose [facility]: Dose Right [facility]: Teradose 4D [facility]: [employer] CONTRAST TYPE AND DOSE: 100 mL Omnipaque 350- low osmolar. RENAL FUNCTION: GFR > 60. RADIATION DOSE: . LIMITATIONS: None. FINDINGS: LUNGS AND PLEURA: No opacities, nodules, masses. No pneumothorax. No effusions. HILAR AND MEDIASTINAL STRUCTURES: No identified masses or abnormal nodes. HEART AND VASCULAR STRUCTURES: No aneurysm or dissection. No central pulmonary emboli. No pericardi al effusion. HARDWARE: None in the chest. UPPER ABDOMEN: No significant findings. Limited exam. THYROID AND OTHER SOFT TISSUES: No masses. No adenopathy. BONES: No significant finding. OTHER: No other significant finding. IMPRESSION: No acute findings. TECHNICAL DOCUMENTATION: JOB ID: [id number] [place]-72 Quality ID # [id number]: Final reports with documentation of one or more dose reduction techniques (e.g., Au tomated exposure control, adjustment of the mA and/or kV according to patient size, use of iterative reconstruction technique) 2010 [employer]- All Rights Reserved
--- NOTE | 2017-02-24 17:40 | RADIOLOGY REPORT (SQ) ---
EXAM DESCRIPTION: CT ABD/PELVIS WITH IV ONLY COMPLETED DATE/TIME: 02/24/2017 5:03 pm REASON FOR STUDY: abd/diffuse back pain after fall, UTI COMPARISON: None. TECHNIQUE: CT scan of the abdomen and pelvis performed using helical scanning technique with dynamic intravenous contrast injection. No oral contrast. Images reviewed with lung, soft tissue, and bone windows. Reconstructed coronal and sagittal MPR images reviewed. Delayed images for evaluation of the urinary system also acquired. All images stored on PACS. All CT scanners at this facility use dose modulation, iterative reconstruction, and/or weight based d osing when appropriate to reduce radiation dose to as low as reasonably achievable (ALARA). [facility]: Dose Right [facility]: CareDose [facility]: Dose Right [facility]: Teradose 4D [facility]: [employer] CONTRAST TYPE AND DOSE: contrast/concentration: Isovue 370.00 mg/ml; Total Contrast Delivered: 69.0 ml; Total Saline Delivered: 65.0 ml RENAL FUNCTION: GFR > 60. RADIATION DOSE: . LIMITATIONS: None. FINDINGS: LOWER CHEST: No significant findings. No nodules or infiltrates. LIVER: Normal size. No masses. No dilated ducts. SPLEEN: Normal size. No focal lesions. PANCREAS: No masses. No significant calcifications. No adjacent inflammation or peripancreatic fluid collections. Pancreatic duct not dilated. GALLBLADDER: No identified stones by CT criteria. No inflammatory changes to suggest cholecystitis. ADRENAL GLANDS: No significant masses or asymmetry. RIGHT KIDNEY AND URETER: No solid masses. No significant calcifications. No hydronephrosis or hyd roureter. LEFT KIDNEY AND URETER: 1.8 cm hypodense area in the anterior-lower pole of the left kidney with mild adjacent inflammatory changes in the anterior pararenal space, this may reflect contusion, however i nfectious etiology is a differential consideration in the appropriate clinical setting. No significa nt calcifications. No hydronephrosis or hydroureter. AORTA AND VESSELS: No aneurysm. No dissection. Renal arteries, SMA, celiac without stenosis. RETROPERITONEUM: No retroperitoneal adenopathy, hemorrhage or masses. BOWEL AND PERITONEAL CAVITY: No masses or inflammatory changes. No free fluid or peritoneal masses. APPENDIX: Normal. PELVIS: No mass. No free fluid. Normal bladder. ABDOMINAL WALL: No masses. No hernias. BONES: No acute findings. Bilateral pars interarticularis defects at the L5 level. OTHER: No other significant finding. IMPRESSION: 1.8 cm hypodense area in the anterior-lower pole of the left kidney with mild adjacent i nflammatory changes in the anterior pararenal space, this may reflect a contusion, however an infecti ous etiology is a differential consideration in the appropriate clinical setting. No acute fracture. TECHNICAL DOCUMENTATION: JOB ID: [id number] [place]-72 Quality ID # [id number]: Final reports with documentation of one or more dose reduction techniques (e.g., Au tomated exposure control, adjustment of the mA and/or kV according to patient size, use of iterative reconstruction technique) 2010 [employer] All Rights Reserved
[2017-02-24] MEDS ORDERED: DOXYCYCLINE HYCLATE 100 MG TABLET PO ONE (17:53)
[2017-02-24] MEDS ORDERED: CIPROFLOXACIN HCL 500 MG TABLET PO ONE (17:53)
[2017-02-24 18:26] VITALS: BP 98/60
== END 2017-02-24 18:26 | disposition home or self-care (01) ==
LOC: EEVIPCON 12:44 → ER 12:44
DX: S20.222A Contusion of left back wall of thorax, initial encounter (principal); W19.XXXA Unspecified fall, initial encounter; Y93.41 Activity, dancing; N12 Tubulo-interstitial nephritis, not specified as acute or chronic; N73.9 Female pelvic inflammatory disease, unspecified; N93.9 Abnormal uterine and vaginal bleeding, unspecified; R00.0 Tachycardia, unspecified; F17.200 Nicotine dependence, unspecified, uncomplicated; Z88.5 Allergy status to narcotic agent; Z88.2 Allergy status to sulfonamides; Z88.1 Allergy status to other antibiotic agents
CPT/HCPCS: 99284; 96361; 96365; 36415; 87086; 87210; 85025; 81025; 87088; 80053; 81001; 87186; 80307; 87491; 87591; 71260; 72128; 72131; 74177; J3490 ×2; J7030; J0696

== ENCOUNTER 2017-04-20 20:44 | Emergency (ER) | payer MEDICAID ==
[2017-04-20 21:03] VITALS: BP 94/65
[2017-04-20] MEDS ORDERED: TETRACAINE HCL 0.5% OPH SOLN 4 ML OD ONE ×2 (21:26→22:02)
--- NOTE | 2017-04-20 21:58 | RADIOLOGY REPORT (SQ) ---
EXAM DESCRIPTION: CHEST PA/LAT COMPLETED DATE/TIME: 04/20/2017 9:41 pm REASON FOR STUDY: cough congestion COMPARISON: 11/01/2007 EXAM PARAMETERS: NUMBER OF VIEWS: two views TECHNIQUE: Digital Frontal and Lateral radiographic views of the chest acquired. RADIATION DOSE: NA LIMITATIONS: none FINDINGS: LUNGS AND PLEURA: No opacities, masses or pneumothorax. No pleural effusion. MEDIASTINUM AND HILAR STRUCTURES: No masses or contour abnormalities. HEART AND VASCULAR STRUCTURES: Heart normal size. No evidence for failure. BONES: No acute findings. HARDWARE: None in the chest. OTHER: No other significant finding. IMPRESSION: NO SIGNIFICANT RADIOGRAPHIC FINDING IN THE CHEST. TECHNICAL DOCUMENTATION: JOB ID: [id number] [employer]- All Rights Reserved
[2017-04-20] MEDS ORDERED: TETRACAINE HCL 0.5% OPH SOLN 2 ML OD ONE (22:03)
[2017-04-20] MEDS ORDERED: ALBUTEROL SULFATE 0.083% NEB 2.5 MG/3 ML AMPUL NEB ONE (22:21)
[2017-04-20] MEDS ORDERED: PREDNISONE 20 MG TABLET PO ONE (22:56)
[2017-04-20] MEDS ORDERED: ALBUTEROL SULFATE HFA (90 MCG/PUFF) 8 GM MDI (1 MDI/ER DISP) IH PRN (22:56)
--- NOTE | 2017-04-20 23:01 | ER Document Report ---
ED Respiratory Problem - General Chief Complaint: Eye Problem Stated Complaint: POSSIBLE PINK EYE Time Seen by Provider: 04/20/17 21:15 Mode of Arrival: Ambulatory Information source: Patient Notes: 21-year-old female presents to ED for swollen right eye with yellow drainage left eye starting to get red and swollen 2 days. Patient also has a productive cough with yellow sputum for 2 weeks. Patient is alert and oriented no apparent acute distress but she does have a very frequent dry cough. Patient is a smoker. TRAVEL OUTSIDE OF THE [place] IN LAST 30 DAYS: No - HPI Patient complains to provider of: Cough, Other - Swollen pink right eye with yellow drainage the left eye starting to get red and starting to drain. Onset: Other - Right eye has been red with yellow drainage for 2 days left eye is starting to get pink with drainage Duration: Continuous Initiating Event: URI Quality of pain: Achy Severity: Moderate Pain Level: 2 Context: Hx asthma, Smoker Short of Breath: Mild Cough: Productive Sputum amount: Small Sputum color: Yellow Sputum consistency: Thick Associated symptoms: Congestion, Cough, Fever, PND, Runny nose, Sinus pain/ pressure, Other - [place] eye with yellow drainage matted eyelashes Similar symptoms previously: Yes Recently seen / treated by doctor: No - Related Data Allergies/Adverse Reactions: hydrocodone bitartrate [From Vicodin] Allergy (Verified 04/20/17 20:46) itchy Sulfa (Sulfonamide Antibiotics) Allergy (Verified 04/20/17 20:46) Edema sulfamethoxazole [From Septra] Allergy (Verified 04/20/17 20:46) trimethoprim [From Septra] Allergy (Verified 04/20/17 20:46) Edema Past Medical History - General Information source: Patient - Social History Smoking Status: Current Every Day Smoker Cigarette use (# per day): Yes - Normally close to a pack a day has been reduced last couple days Smoking Education Provided: Yes - 4 minutes Frequency of alcohol use: Rare Drug Abuse: Marijuana Lives with: Family Family History: Reviewed & Not Pertinent Patient has suicidal ideation: No Patient has homicidal ideation: No - Past Medical History Cardiac Medical History: Reports: None Pulmonary Medical History: Reports: Hx Asthma, Hx Bronchitis EENT Medical History: Reports: None Neurological Medical History: Reports: None Endocrine Medical History: Reports: None Renal/ Medical History: Reports: None Malignancy Medical History: Reports: None GI Medical History: Reports: Hx Hepatitis - Hepatitis c Musculoskeltal Medical History: Reports None Skin Medical History: Reports None Psychiatric Medical History: Reports: Hx Anxiety Traumatic Medical History: Reports: None Infectious Medical History: Reports: Hx Hepatitis - Hepatitis c Past Surgical History: Reports: Hx Oral Surgery - wisdom teeth, Hx Tonsillectomy , Hx Tubal Ligation - Immunizations Immunizations up to date: Yes Hx Diphtheria, Pertussis, Tetanus Vaccination: Yes Review of Systems - Review of Systems Constitutional: No symptoms reported, Fever, Recent illness EENT: Eye pain, Eye discharge, Nose discharge, Sinus discharge, Throat pain Respiratory: Cough, Sputum, Wheezing Gastrointestinal: No symptoms reported Genitourinary: No symptoms reported Female Genitourinary: No symptoms reported Musculoskeletal: No symptoms reported Skin: No symptoms reported Hematologic/Lymphatic: No symptoms reported Neurological/Psychological: No symptoms reported -: Yes All other systems reviewed and negative Physical Exam - Vital signs Vitals: Temp Pulse Resp BP Pulse Ox 98.5 F 102 H 16 94/65 L 96 04/20/17 20:59 04/20/17 20:59 04/20/17 20:59 04/20/17 20:59 04/20/17 20:59 Interpretation: Normal - General General appearance: Appears well, Alert - HEENT Head: Normocephalic, Atraumatic Eyes: Normal Conjunctiva: Injected, Purulent discharge Cornea: Normal. No: Corneal abrasion, Corneal ulcer, Flourescein stain uptake Eyelashes: Matted Pupils: PERRL Visual acuity- Right eye: 20/25 Visual acuity- Left eye: 20/30 Visual acuity- Both eyes: 20/25 Corrective lenses worn: No - PCT Michell Visual calderon normal: Yes Ears: Normal External canal: Normal Tympanic membrane: Normal Sinus: Frontal, Tenderness Nasal: Purulent discharge, Swelling Mouth/Lips: Normal Mucous membranes: Normal Pharynx: Post nasal drainage Neck: Normal - Respiratory Respiratory status: No respiratory distress Chest status: Nontender Breath sounds: Decreased air movement, Productive cough, Wheezing Chest palpation: Normal - Cardiovascular Rhythm: Regular Heart sounds: Normal auscultation Murmur: No - Abdominal Inspection: Normal Distension: No distension Bowel sounds: Normal Tenderness: Nontender Organomegaly: No organomegaly - Back Back: Normal, Nontender - Extremities General upper extremity: Normal inspection, Nontender, Normal color, Normal ROM , Normal temperature General lower extremity: Normal inspection, Nontender, Normal color, Normal ROM , Normal temperature, Normal weight bearing. No: Vanessa's sign - Neurological Neuro grossly intact: Yes Cognition: Normal Orientation: AAOx4 [place] Coma Scale Eye Opening: Spontaneous [place] Coma Scale Verbal: Oriented [place] Coma Scale Motor: Obeys Commands [place] Coma Scale Total: 15 Speech: Normal Motor strength normal: LUE, RUE, LLE, RLE Sensory: Normal - Psychological Associated symptoms: Normal affect, Normal mood - Skin Skin Temperature: Warm Skin Moisture: Dry Skin Color: Normal Course - Re-evaluation Re-evalutation: 04/20/17 23:21 Patient's assessment consistent with viral conjunctivitis and bronchitis. Patient was treated with albuterol nebulizers 2 prednisone 60 mg in the emergency room. She was discharged home with a prescription for ofloxacin and prednisone and instructions to follow-up with an indian blanket weaver. Dr. Pollock was consulted concerning her eye he agreed it was probable of viral conjunctivitis but will start on antibiotics as ophthalmology will be closed until Saturday. - Vital Signs Vital signs: Temp Pulse Resp BP Pulse Ox 98.5 F 102 H 16 94/65 L 96 04/20/17 20:59 04/20/17 20:59 04/20/17 20:59 04/20/17 20:59 04/20/17 20:59 Discharge - Discharge Clinical Impression: Bronchitis, Viral conjunctivitis of both eyes Condition: Stable Disposition: HOME, SELF-CARE Instructions: Family Physicians / Practices Additional Instructions: BRONCHIOLITIS: Your child has bronchiolitis. This is usually a viral infection of the smaller airways within the chest. Typical symptoms are fever, cough, and wheezing. The wheezing is due to swelling in the airways, although sometimes airway spasm (asthma) is also present. The infection will persist for 10 to 14 days, although typically the child wheezes only one or two days. There is no cure for bronchiolitis. If airway spasm seems to be present, the doctor may try an asthma medication. Decongestants and antihistamines are usually not helpful. The usual treatment is a cool mist humidifier at home, with extra liquids given by mouth. Acetaminophen may be given for fever. Hospitalization may be needed for very ill children who do not respond to usual treatments. If the child seems to be having increased difficulty breathing, has poor color, develops higher fever, or appears more ill, call the doctor or return at once. CONJUNCTIVITIS: You have an infection in your eye, commonly known as "pink eye." Conjunctivitis causes redness, mild discomfort, itching, and mattering on the eyelids. It is very contagious, so you must be careful to wash your hands after touching your face so you don't pass the infection on to others. Conjunctivitis is caused by both viruses and bacteria. It usually responds quickly to treatment with antibiotic drops. These should be placed in the eye as prescribed (usually every three to four hours while you're awake). If you wear contact lenses, don't put them in your eyes until the infection is cleared and you are no longer using the drops (unless your doctor advises you otherwise). Should you develop increasing eye pain, severe swelling, decreased vision, or fail to improve as expected, please return for re-examination. EYEDROP USE: Eyedrops are most easily applied by pulling down on the cheek just below the lower eyelid. The lower lid will pop out to form a pouch into which you can drop the medicine. A small brief sting is not unusual, especially if the eye is reddened and irritated already. Use the drops exactly as recommended. You should see the doctor at once if there is a decrease in vision, swelling of the eye, or an increase in discomfort. FEVER: A child's nervous system is not fully developed. For this reason, a high fever may accompany a relatively minor infection. The fever is useful for fighting the infection. However, a fever above 101 F should be treated. Take the child's temperature every four hours. Normal rectal temperature is 99.6 F or 37.0 C. This is a full degree higher than oral. For the first 24 hours, give acetaminophen (Tempura, Tylenol, Liquiprin, etc.) every four hours if the child's temperature is greater than 101 F. Read the bottle for the correct dosage. Encourage clear liquids (popsicles, flat sodas, water, juice). Use light- weight clothing. Sponge bathe your child with lukewarm water if fever is greater than 103 F. If your child's fever does not resolve within two days or if persistent vomiting, lethargy, or a seizure occurs, call the doctor or return at once for re-examination. STEROID MEDICATION: You have been given a medicine of the cortisone/steroid class. This medication is used to control inflammation or allergy. It is usually only given for a short period of time, until the acute process subsides. There are usually no side effects from short-term use of cortisone-like medications. Some persons feel an increased sense of well-being and are not sleepy at bedtime. Long-term use of cortisone medications is best avoided, unless required for a severe condition. If your condition does not remit, or relapses after the course of corticosteroid medication, you should consult your physician. INHALED BRONCHODILATORS: You have received a treatment of and/or prescription for an inhaled bronchodilator -- a medication which stimulates the airways in the lung to dilate. This improves the flow of air in asthma, bronchitis, and emphysema. These medicines have some similarity to adrenaline, and can cause similar side effects: shakiness, racing heart, and a sense of nervousness. These side effects decrease with time. Contact your doctor if these side effects are severe. Do not over-use the medicine. Too-frequent use of the inhaler may make it ineffective. Call your doctor if the inhaler is not controlling your symptoms at the prescribed doses. USE OF ACETAMINOPHEN (Tylenol): Acetaminophen may be taken for pain relief or fever control. It's much safer than aspirin, offering a wider range of "safe" dosages. It is safe during . Some brand names are Tylenol, Panadol, Datril, Anacin 3, Tempra, and Liquiprin. Acetaminophen can be repeated every four hours. The following are maximum recommended dosages: WEIGHT Dose Drops Elixir Chewable( 80mg) (LBS.) drprs=droppers tsp=teaspoon 6 40 mg 0.4 ml (1/2) 6-11 80 mg 0.8 ml (full) tsp 1 tab 12-16 120 mg 1 1/2 drprs 3/4 tsp 1 1/2 tabs 17-23 160 mg 2 drprs 1 tsp 2 tabs 24-30 240 mg 3 drprs 1 1/2 tsp 3 tabs 30-35 320 mg 2 tsp 4 tabs 36-41 360 mg 2 1/4 tsp 4 1/2 tabs 42-47 400 mg 2 1/2 tsp 5 tabs 48-53 480 mg 3 tsp 6 tabs 54-59 520 mg 3 1/4 tsp 6 1/2 tabs 60-64 560 mg 3 1/2 tsp 7 tabs 65-70 600 mg 3 3/4 tsp 7 1/2 tabs 71-76 640 mg 4 tsp 8 tabs 77-82 720 mg 4 1/2 tsp 9 tabs 83-88 800 mg 5 tsp 10 tabs >89 pounds or adults 650 mg to 900 mg Acetaminophen can be repeated every four hours. Maximum dose not to exceed 4000 mg a day. These maximum recommended dosages are slightly higher than the dosages written on the product container, but these dosages are very safe and below the toxic dosage for acetaminophen. FOLLOW-UP CARE: If you have been referred to a physician for follow-up care, call the physician s office for an appointment as you were instructed or within the next two days. If you experience worsening or a significant change in your symptoms, notify the physician immediately or return to the Emergency Department at any time for re-evaluation. Prescriptions: Ofloxacin [Floxin] 1 drop BTH_EYE Q3HWA #1 bottle Prednisone 10 mg PO ASDIR PRN #21 tablet PRN Reason: Forms: Smoking Cessation Education Referrals: TRICIA EASLEY MD [ACTIVE STAFF] - Follow up as needed
== END 2017-04-20 23:11 | disposition home or self-care (01) ==
LOC: ER 20:44
DX: B30.9 Viral conjunctivitis, unspecified (principal); J40 Bronchitis, not specified as acute or chronic; R22.0 Localized swelling, mass and lump, head; R05 Cough; R09.81 Nasal congestion; R50.9 Fever, unspecified; R09.89 Other specified symptoms and signs involving the circulatory and respiratory systems; R51 Headache; F17.210 Nicotine dependence, cigarettes, uncomplicated
CPT/HCPCS: 99406; 94640; 99283; 71046; J7512; J3490 ×2

== ENCOUNTER 2017-05-03 15:06 | Emergency (ER) | payer MEDICAID ==
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
--- NOTE | 2017-05-03 18:18 | RADIOLOGY REPORT (SQ) ---
EXAM DESCRIPTION: CT FACIAL AREA WITHOUT COMPLETED DATE/TIME: 05/03/2017 5:08 pm REASON FOR STUDY: mastoid pain, dr davis recomended temporal bone w/o COMPARISON: None. TECHNIQUE: Noncontrasted images through the facial and temporal bones and orbits windowed for bone a nd soft tissue. Additional coronal and sagittal reconstructed images reviewed. All images stored on PACS. All CT scanners at this facility use dose modulation, iterative reconstruction, and/or weight based d osing when appropriate to reduce radiation dose to as low as reasonably achievable (ALARA). [facility]: Dose Right [facility]: CareDose [facility]: Dose Right [facility]: Teradose 4D [facility]: [employer] RADIATION DOSE: CT Rad equipment meets quality standard of care and radiation dose reduction techniq ues were employed. CTDIvol: 30.4 mGy. DLP: 522 mGy-cm. mGy. LIMITATIONS: None. FINDINGS: FACIAL BONES: No fracture or bone lesion. ORBITS: Intact. No fracture. Symmetric intact globes and retroorbital soft tissues. PARANASAL SINUSES: Mucosal thickening left anterior ethmoid and frontal sinus without air-fluid level s. No nasal polyps. Maxillary sinus outlets are patent. SOFT TISSUES: No mass or edema. VISUALIZED BRAIN: Limited view. No acute findings. TEMPORAL BONES: Normal opacification of the mastoid air cells. No fracture. Inner, middle, and exte rnal ear structures are grossly normal. IMPRESSION: MILD CHRONIC LEFT-SIDED PARANASAL SINUS DISEASE. OTHERWISE UNREMARKABLE NONCONTRAST CT FACE AND TEMPORAL BONE. TECHNICAL DOCUMENTATION: JOB ID: [id number] Quality ID # [id number]: Final reports with documentation of one or more dose reduction techniques (e.g., Au tomated exposure control, adjustment of the mA and/or kV according to patient size, use of iterative reconstruction technique) 2010 [employer]- All Rights Reserved
[2017-05-03] MEDS ORDERED: LIDOCAINE 2% VISCOUS SOLN 20 ML UDCUP PO ONE (18:31)
[2017-05-03] MEDS ORDERED: CIPROFLOXACIN HCL/DEXAMETH OTIC DROP 7.5 ML AS ONE (18:31)
[2017-05-03 19:13] VITALS: BP 109/70
== END 2017-05-03 19:05 | disposition home or self-care (01) ==
LOC: ER 15:06
DX: H60.502 Unspecified acute noninfective otitis externa, left ear (principal); H92.09 Otalgia, unspecified ear; R42 Dizziness and giddiness; Z79.899 Other long term (current) drug therapy; F17.210 Nicotine dependence, cigarettes, uncomplicated
CPT/HCPCS: 99283; 70486; J3490

== ENCOUNTER 2017-07-03 17:41 | Emergency (ER) | payer SELFPAY ==
[2017-07-03] MEDS ORDERED: NORMAL SALINE 1000 ML 1,000 ML IV ONE (18:09)
--- NOTE | 2017-07-03 18:10 | ER Document Report ---
ED Medical Screen (RME) - General Chief Complaint: Abdominal Pain Stated Complaint: ABDOMINAL PAIN Time Seen by Provider: 07/03/17 18:08 Notes: 3 days of severe diffuse abdominal pain. It is greatest in the right lower quadrant. She also states she has had some constipation and vaginal discharge. TRAVEL OUTSIDE OF THE [place] IN LAST 30 DAYS: No - Related Data Allergies/Adverse Reactions: hydrocodone bitartrate [From Vicodin] Allergy (Verified 07/03/17 17:44) itchy Sulfa (Sulfonamide Antibiotics) Allergy (Verified 07/03/17 17:44) Edema sulfamethoxazole [From Septra] Allergy (Verified 07/03/17 17:44) trimethoprim [From Septra] Allergy (Verified 07/03/17 17:44) Edema Past Medical History - Social History Chew tobacco use (# tins/day): No Frequency of alcohol use: None Drug Abuse: Heroin, Marijuana - Past Medical History Cardiac Medical History: Denies: Hx Coronary Artery Disease, Hx Heart Attack, Hx Hypertension Pulmonary Medical History: Reports: Hx Asthma, Hx Bronchitis Denies: Hx COPD, Hx Pneumonia Neurological Medical History: Denies: Hx Cerebrovascular Accident, Hx Seizures Renal/ Medical History: Denies: Hx Peritoneal Dialysis GI Medical History: Reports: Hx Hepatitis - Hepatitis c Musculoskeltal Medical History: Denies Hx Arthritis Psychiatric Medical History: Reports: Hx Anxiety Infectious Medical History: Reports: Hx Hepatitis - Hepatitis c Past Surgical History: Reports: Hx Oral Surgery - wisdom teeth, Hx Tonsillectomy , Hx Tubal Ligation - Immunizations Immunizations up to date: Yes Hx Diphtheria, Pertussis, Tetanus Vaccination: Yes Physical Exam - Vital signs Vitals: Temp Pulse Resp BP Pulse Ox 97.9 F 92 16 110/73 99 07/03/17 17:49 07/03/17 17:49 07/03/17 17:49 07/03/17 17:49 07/03/17 17:49 Course - Vital Signs Vital signs: Temp Pulse Resp BP Pulse Ox 97.9 F 92 16 110/73 99 07/03/17 17:49 07/03/17 17:49 07/03/17 17:49 07/03/17 17:49 07/03/17 17:49
[2017-07-03 18:54] LABS: ABSOLUTE BASOPHILS # (AUTO) 0.1 10^3/uL (0.0-0.2); ABSOLUTE EOSINOPHILS # (AUTO) 0.2 10^3/uL (0.0-0.6); ABSOLUTE MONOCYTES (AUTO) 1.1 10^3/uL (0.1-1.4); ABSOLUTE NEUT (AUTO) 6.4 10^3/uL (1.7-8.2); BASOPHILS % (AUTO) 0.6 % (0-2); EOSINOPHILS % (AUTO) 1.9 % (0-6); HEMATOCRIT 40.6 % (36.0-47.0); HEMOGLOBIN 13.8 g/dL (12.0-15.5); LYMPHOCYTES % (AUTO) 27.5 % (13-45); MEAN CORPUSCULAR HGB CONC 33.9 g/dL (32.0-36.0); MEAN CORPUSCULAR VOLUME 86 fl (80-97); MONOCYTES % (AUTO) 10.3 % (3-13); PLATELET COUNT 329 10^3/uL (150-450); RED BLOOD COUNT 4.74 10^6/uL (3.72-5.28); RED CELL DISTRIBUTION WIDTH 15.7 % (11.5-14.0); SEGMENTED NEUTROPHILS % (AUTO) 59.7 % (42-78); TOTAL CELLS COUNTED % (AUTO) 100 %; WHITE BLOOD COUNT 10.8 10^3/uL (4.0-10.5)
[2017-07-03 19:12] LABS: AMORPHOUS SEDIMENT,URINE TRACE /HPF; APPEARANCE,URINE TURBID; BILIRUBIN,URINE NEGATIVE (NEGATIVE); GLUCOSE, URINE NEGATIVE (NEGATIVE); KETONES,URINE NEGATIVE (NEGATIVE); LEUKOCYTE ESTERASE,URINE TRACE (NEGATIVE); NITRITE,URINE POSITIVE (NEGATIVE); PROTEIN,URINE NEGATIVE (NEGATIVE); URINE SPECIFIC GRAVITY 1.014
[2017-07-03 19:14] LABS: COLOR,URINE YELLOW
[2017-07-03 19:45] LABS: ALANINE AMINOTRANSFERASE 90 U/L (9-52); ALBUMIN 3.3 g/dL (3.5-5.0); ALKALINE PHOSPHATASE 93 U/L (38-126); ANION GAP 10 (5-19); ASPARTATE AMINO TRANSFERASE 35 U/L (14-36); BILIRUBIN,DIRECT 0.5 mg/dL (0.0-0.4); BILIRUBIN,TOTAL 0.5 mg/dL (0.2-1.3); BLOOD UREA NITROGEN 16 mg/dL (7-20); CALCIUM 8.9 mg/dL (8.4-10.2); CARBON DIOXIDE 22 mmol/L (22-30); CHLORIDE 109 mmol/L (98-107); POTASSIUM 4.1 mmol/L (3.6-5.0); SODIUM 141.2 mmol/L (137-145); TOTAL PROTEIN 6.2 g/dL (6.3-8.2)
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
[2017-07-03 19:54] LABS: GLUCOSE 115 mg/dL (75-110)
[2017-07-03 20:45] LABS: BACTERIA (WET MOUNT) 3+ BACTERIA SEEN; T.VAGINALIS (WET MOUNT) NO TRICHOMONAS SEEN; WBCS (WET MOUNT) 4+ WBCS SEEN; YEAST (WET MOUNT) NO YEAST SEEN
[2017-07-03] MEDS ORDERED: METRONIDAZOLE 500 MG/NS RTU 100 ML IV ONE (20:51)
[2017-07-03 22:09] LABS: CHLAM PCR NOT DETECTED (NOT DETECT); GON PCR DETECTED (NOT DETECT)
[2017-07-03] MEDS ORDERED: CEFTRIAXONE INJ 250 MG VIAL IM ONE (22:21)
[2017-07-03] MEDS ORDERED: AZITHROMYCIN 250 MG TABLET PO ONE (22:21)
[2017-07-03 22:27] LABS: URINE AMPHETAMINES SCREEN UNCONFIRMED POSITIVE; URINE BARBITURATES SCREEN NEGATIVE; URINE BENZODIAZEPINES SCREEN NEGATIVE; URINE COCAINE SCREEN NEGATIVE; URINE MARIJUANA (THC) SCREEN UNCONFIRMED POSITIVE; URINE METHADONE SCREEN NEGATIVE; URINE PHENCYCLIDINE SCREEN NEGATIVE
[2017-07-03] MEDS ORDERED: LIDOCAINE 1% INJ-PF (10 MG/ML) 30 ML SDV ONE (22:40)
--- NOTE | 2017-07-03 23:23 | RADIOLOGY REPORT (SQ) ---
EXAM DESCRIPTION: CT ABD/PELVIS WITH IV ONLY COMPLETED DATE/TIME: 07/03/2017 11:09 pm REASON FOR STUDY: RLQ pain COMPARISON: 02/24/2017 TECHNIQUE: CT scan of the abdomen and pelvis performed using helical scanning technique with dynamic intravenous contrast injection. No oral contrast. Images reviewed with lung, soft tissue, and bone windows. Reconstructed coronal and sagittal MPR images reviewed. Delayed images for evaluation of the urinary system also acquired. All images stored on PACS. All CT scanners at this facility use dose modulation, iterative reconstruction, and/or weight based d osing when appropriate to reduce radiation dose to as low as reasonably achievable (ALARA). [facility]: Dose Right [facility]: CareDose [facility]: Dose Right [facility]: Teradose 4D [facility]: [employer] CONTRAST TYPE AND DOSE: contrast/concentration: Isovue 370.00 mg/ml; Total Contrast Delivered: 59.0 ml; Total Saline Delivered: 40.0 ml RENAL FUNCTION: None required. The patient is less than 50 years old. RADIATION DOSE: CT Rad equipment meets quality standard of care and radiation dose reduction techniq ues were employed. CTDIvol: 5.2 - 6.1 mGy. DLP: 543 mGy-cm.. LIMITATIONS: None. FINDINGS: LOWER CHEST: No significant findings. No nodules or infiltrates. LIVER: Normal size. No masses. No dilated ducts. SPLEEN: Normal size. No focal lesions. PANCREAS: No masses. No significant calcifications. No adjacent inflammation or peripancreatic fluid collections. Pancreatic duct not dilated. GALLBLADDER: Decompressed gallbladder. Small calcified gallstone. No inflammatory changes to suggest cholecystitis. ADRENAL GLANDS: No significant masses or asymmetry. RIGHT KIDNEY AND URETER: No solid masses. No significant calcifications. No hydronephrosis or hyd roureter. LEFT KIDNEY AND URETER: No solid masses. No significant calcifications. No hydronephrosis or hydr oureter. AORTA AND VESSELS: No aneurysm. No dissection. Renal arteries, SMA, celiac without stenosis. RETROPERITONEUM: No retroperitoneal adenopathy, hemorrhage or masses. BOWEL AND PERITONEAL CAVITY: No masses or inflammatory changes. No free fluid or peritoneal masses. APPENDIX: Normal. PELVIS: Mild free fluid. Normal bladder. Prior bilateral tubal ligation. ABDOMINAL WALL: No masses. No hernias. BONES: No acute findings. Bilateral L5 pars interarticularis defects. No spondylolisthesis. OTHER: No other significant finding. IMPRESSION: Normal appendix. Mild pelvic free fluid, nonspecific. Decompressed gallbladder, Small calcified gallstone. Bilateral L5 pars interarticularis defects. No spondylolisthesis. TECHNICAL DOCUMENTATION: JOB ID: [id number] Quality ID # [id number]: Final reports with documentation of one or more dose reduction techniques (e.g., Au tomated exposure control, adjustment of the mA and/or kV according to patient size, use of iterative reconstruction technique) 2010 [employer]- All Rights Reserved Reading location - IP/workstation name: [email or web address]
[2017-07-04 11:36] VITALS: BP 130/82
== END 2017-07-04 11:37 | disposition home or self-care (01) ==
LOC: ER 17:41
DX: N73.9 Female pelvic inflammatory disease, unspecified (principal); N76.0 Acute vaginitis; B96.89 Other specified bacterial agents as the cause of diseases classified elsewhere; N39.0 Urinary tract infection, site not specified; R10.31 Right lower quadrant pain; R10.2 Pelvic and perineal pain; F17.200 Nicotine dependence, unspecified, uncomplicated; J45.909 Unspecified asthma, uncomplicated
CPT/HCPCS: 99284; 96372; 96360; 96361; 36415; 87040; 87210; 80307 ×2; 85025; 81025; 80053; 81001; 87491; 87591; 74177; J7030; J0696

== ENCOUNTER 2018-03-11 18:03 | Emergency (ER) | payer MEDICAID ==
[2018-03-11 18:12] VITALS: BP 138/88
[2018-03-11] MEDS ORDERED: NORMAL SALINE 1000 ML 1,000 ML IV ONE ×2 (18:33→19:37)
[2018-03-11] MEDS ORDERED: KETOROLAC TROMETHAMINE INJ/PF 30 MG/1 ML SDV IV ONE (18:34)
[2018-03-11] MEDS ORDERED: FENTANYL CITRATE INJ/PF 100 MCG/2 ML AMPUL IV ONE (18:35)
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
[2018-03-11 18:56] LABS: ABSOLUTE BASOPHILS # (AUTO) 0.1 10^3/uL (0.0-0.2); ABSOLUTE EOSINOPHILS # (AUTO) 0.2 10^3/uL (0.0-0.6); ABSOLUTE LYMPHOCYTES (AUTO) 3.3 10^3/uL (0.5-4.7); ABSOLUTE NEUT (AUTO) 5.2 10^3/uL (1.7-8.2); BASOPHILS % (AUTO) 0.5 % (0-2); EOSINOPHILS % (AUTO) 1.7 % (0-6); HEMATOCRIT 42.1 % (36.0-47.0); HEMOGLOBIN 14.6 g/dL (12.0-15.5); LYMPHOCYTES % (AUTO) 33.7 % (13-45); MEAN CORPUSCULAR HEMOGLOBIN 30.6 pg (27.0-33.4); MEAN CORPUSCULAR HGB CONC 34.7 g/dL (32.0-36.0); MEAN CORPUSCULAR VOLUME 88 fl (80-97); MONOCYTES % (AUTO) 10.7 % (3-13); PLATELET COUNT 325 10^3/uL (150-450); RED BLOOD COUNT 4.76 10^6/uL (3.72-5.28); RED CELL DISTRIBUTION WIDTH 14.1 % (11.5-14.0); SEGMENTED NEUTROPHILS % (AUTO) 53.4 % (42-78); TOTAL CELLS COUNTED % (AUTO) 100 %; WHITE BLOOD COUNT 9.8 10^3/uL (4.0-10.5)
[2018-03-11 19:06] LABS: APPEARANCE,URINE SLIGHTLY-CLOUDY; BILIRUBIN,URINE NEGATIVE (NEGATIVE); COLOR,URINE YELLOW; GLUCOSE, URINE NEGATIVE (NEGATIVE); KETONES,URINE NEGATIVE (NEGATIVE); LEUKOCYTE ESTERASE,URINE NEGATIVE (NEGATIVE); NITRITE,URINE NEGATIVE (NEGATIVE); PROTEIN,URINE NEGATIVE (NEGATIVE); URINE SPECIFIC GRAVITY 1.021; UROBILINOGEN,URINE NEGATIVE mg/dL (<2.0)
[2018-03-11 19:16] LABS: ALANINE AMINOTRANSFERASE 258 U/L (9-52); ALBUMIN 4.8 g/dL (3.5-5.0); ALKALINE PHOSPHATASE 61 U/L (38-126); ANION GAP 8 (5-19); ASPARTATE AMINO TRANSFERASE 166 U/L (14-36); BILIRUBIN,DIRECT 0.3 mg/dL (0.0-0.4); BILIRUBIN,TOTAL 0.7 mg/dL (0.2-1.3); BLOOD UREA NITROGEN 24 mg/dL (7-20); CARBON DIOXIDE 31 mmol/L (22-30); CHLORIDE 101 mmol/L (98-107); GLUCOSE 94 mg/dL (75-110); LIPASE 119.6 U/L (23-300); POTASSIUM 4.4 mmol/L (3.6-5.0); SODIUM 140.2 mmol/L (137-145); TOTAL PROTEIN 8.7 g/dL (6.3-8.2)
--- NOTE | 2018-03-11 19:19 | ER Document Report ---
ED General - General Chief Complaint: Flank Pain Stated Complaint: FLANK PAIN Time Seen by Provider: 03/11/18 18:24 Mode of Arrival: Ambulatory Information source: Patient Notes: 22-year-old female with hepatitis C, asthma, anxiety, current heroin abuse presents with complaint of sudden onset of right flank pain. Patient states that just prior to arrival she experienced a sharp stabbing pain with radiation to her right lower quadrant. She describes the pain as intermittent and not associated with nausea, vomiting, diarrhea, dysuria, hematuria, vaginal discharge. Patient states that she is currently menstruating. Patient's last drug use was 1 day prior to arrival. No evidence of infection at her last injection site. TRAVEL OUTSIDE OF THE [place] IN LAST 30 DAYS: No - HPI Onset: Just prior to arrival Onset/Duration: Sudden, Intermittent Quality of pain: Sharp Associated symptoms: denies: Chest pain, Diarrhea, Fever, Headache, Nausea, Vomiting, Shortness of breath, Weakness Exacerbated by: Movement Relieved by: Denies Similar symptoms previously: Yes - Kidney stones Recently seen / treated by doctor: No - Related Data Allergies/Adverse Reactions: hydrocodone bitartrate [From Vicodin] Allergy (Verified 03/11/18 18:05) itchy Sulfa (Sulfonamide Antibiotics) Allergy (Verified 03/11/18 18:05) Edema sulfamethoxazole [From Septra] Allergy (Verified 03/11/18 18:05) trimethoprim [From Septra] Allergy (Verified 03/11/18 18:05) Edema Past Medical History - General Information source: Patient, [facility] Records - Social History Smoking Status: Current Every Day Smoker Cigarette use (# per day): Yes - 20 Smoking Education Provided: Yes - Smoking cessation counseling was provided for 4 minutes at the bedside Frequency of alcohol use: Occasional Drug Abuse: Heroin, Marijuana Lives with: Friend Family History: Reviewed & Not Pertinent Patient has suicidal ideation: No Patient has homicidal ideation: No - Past Medical History Cardiac Medical History: Denies: Hx Coronary Artery Disease, Hx Heart Attack, Hx Hypertension Pulmonary Medical History: Reports: Hx Asthma, Hx Bronchitis Denies: Hx COPD, Hx Pneumonia Neurological Medical History: Denies: Hx Cerebrovascular Accident, Hx Seizures Renal/ Medical History: Denies: Hx Peritoneal Dialysis GI Medical History: Reports: Hx Hepatitis - Hepatitis c Musculoskeletal Medical History: Denies Hx Arthritis Psychiatric Medical History: Reports: Hx Anxiety Infectious Medical History: Reports: Hx Hepatitis - Hepatitis c Past Surgical History: Reports: Hx Oral Surgery - wisdom teeth, Hx Tonsillecto my, Hx Tubal Ligation - Immunizations Immunizations up to date: Yes Hx Diphtheria, Pertussis, Tetanus Vaccination: Yes Review of Systems - Review of Systems Notes: REVIEW OF SYSTEMS: CONSTITUTIONAL : Denies fever, chills, or sweats. Denies recent illness. Denies weight loss, recent hospitalizations. EENT: Denies visual changes, eye pain. Denies sore throat, oral lesions, difficulty swallowing. CARDIOVASCULAR: Denies chest pain. Denies palpitations. Denies lower extremity edema. RESPIRATORY: Denies cough. Denies shortness of breath, wheezing. GASTROINTESTINAL: Denies abdominal pain or distention. Denies nausea, vomiting, or diarrhea. Denies blood in vomitus, stools, or per rectum. Denies black, tarry stools. Denies constipation. GENITOURINARY: Denies difficulty urinating, painful urination, frequency, blood in urine, or vaginal discharge. MUSCULOSKELETAL: Denies neck pain or stiffness. Denies joint swelling. SKIN: Denies rash, lesions or sores. HEMATOLOGIC : Denies easy bruising or bleeding. LYMPHATIC: Denies swollen glands. NEUROLOGICAL: Denies confusion or altered mental status. Denies loss of consciousness. Denies dizziness or lightheadedness. Denies headache. Denies weakness or paralysis. Denies problems difficulty with ambulation, slurred speech. Denies sensory loss, numbness, or tingling. Denies seizures. PSYCHIATRIC: Denies anxiety or stress. Denies depression, suicidal ideation, or homicidal ideation. Denies visual or auditory hallucinations. Physical Exam - Vital signs Vitals: Temp Pulse Resp BP Pulse Ox 98.3 F 113 H 16 138/88 H 98 03/11/18 18:09 03/11/18 18:09 03/11/18 18:09 03/11/18 18:09 03/11/18 18:09 - Notes Notes: PHYSICAL EXAMINATION: GENERAL: Well-appearing, well-nourished and in no acute distress. HEAD: Atraumatic, normocephalic. EYES: Pupils equal round and reactive to light, extraocular movements intact, conjunctiva are normal. ENT: Nares patent, oropharynx clear without exudates. Moist mucous membranes. NECK: Normal range of motion, supple without lymphadenopathy LUNGS: Breath sounds clear to auscultation bilaterally and equal. No wheezes rales or rhonchi. HEART: Regular rate and rhythm without murmurs ABDOMEN: Soft, nontender, nondistended abdomen. No guarding, no rebound. No masses appreciated. Right CVA tenderness. Negative McBurney's, negative heel strike. Female : deferred Musculoskeletal: Normal range of motion, no pitting or edema. No cyanosis. NEUROLOGICAL: Cranial nerves grossly intact. Normal speech, normal gait. Normal sensory, motor exams PSYCH: Normal mood, normal affect. SKIN: Warm, Dry, normal turgor, no rashes or lesions noted. Course - Re-evaluation Re-evalutation: Temp Pulse Resp BP Pulse Ox 98.3 F 113 H 16 138/88 H 98 03/11/18 18:09 03/11/18 18:09 03/11/18 18:09 03/11/18 18:09 03/11/18 18:09 03/12/18 02:49 22-year-old female with hepatitis C, asthma, anxiety, current heroin abuse presents with complaint of sudden onset of right flank pain. Patient states that just prior to arrival she experienced a sharp stabbing pain with radiation to her right lower quadrant. She describes the pain as intermittent and not associated with nausea, vomiting, diarrhea, dysuria, hematuria, vaginal di scharge. Patient states that she is currently menstruating. Patient's last drug use was 1 day prior to arrival. No evidence of infection at her last injection site, or any other areas of her skin. She is afebrile, not hypoxic. She is tachycardic but patient is very anxious, tearful and seems to be arguing with friend at bedside who is present in the room which is likely contributing or she is experiencing some withdrawl since drug scren negative for opiates but patient adnmits to recent use. She denies chest pain, shortness of breath, trauma. She states this feel like prior "kidney infections. Patient's abdominal exam is benign. She does have right CVA tenderness but no evidence of urinary tract infection. Patient is without leukocytosis, vomiting. Prior to my exam patient did receive morphine and Toradol and reports an improvement of pain. No evidence of rash, cellulitis, urolithiasis, urinary tract infection, cholecystitis. Patient has no significant right lower quadrant pain for 2 suspect appendicitis or ovarian torsion. Patient made aware of gallstone findings. Was discharged home on anti-inflammatory medications. Patient was evaluated and treated as appropriate for the patient's presenting symptoms and complaint, with consideration of any critical or life threatening conditions that may be associated with their obtained history and exam as noted above. All results were discussed with patient. Patient provided the opportunity to ask questions, and express concerns. Patient was educated on treatments based on their presumed diagnosis as noted above. At this time we will discharge the patient with return precautions and follow-up recommendations. Verbal discharge instructions given a the bedside. Medication warnings reviewed. Patient is in agreement with this plan and has verbalized understanding of return precautions. After careful consideration I feel that that patient can be safely discharged from the emergency department, they were advised to followup with a primary care physician in 2-3 days. Dictation on this chart was performed using voice recognition software and may result in unintended grammatical, spelling, syntax or errors. 03/12/18 02:55 - Vital Signs Vital signs: Temp Pulse Resp BP Pulse Ox 98.3 F 113 H 16 138/88 H 98 03/11/18 18:09 03/11/18 18:09 03/11/18 18:09 03/11/18 18:09 03/11/18 18:09 - Laboratory Result Diagrams: 03/11/18 18:45 03/11/18 18:45 Laboratory results interpreted by me: 03/11/18 03/11/18 03/11/18 18:30 18:45 18:45 RDW 14.1 H Carbon Dioxide 31 H BUN 24 H AST 166 H ALT 258 H Total Protein 8.7 H Urine Blood SMALL H - Diagnostic Test Radiology reviewed: Pending, Image reviewed, Reports reviewed Discharge - Discharge Clinical Impression: Biliary colic, Right flank pain, Heroin use Condition: Good Disposition: HOME, SELF-CARE Instructions: Colic ([facility]), Flank Pain ([facility]), Observation for Appendicitis ([facility]), Gallbladder Disease ([facility]) Prescriptions: Naproxen [Naprosyn] 500 mg PO BID 10 Days #20 tablet Forms: Elevated Blood Pressure, Smoking Cessation Education
[2018-03-11 19:24] LABS: URINE BARBITURATES SCREEN NEGATIVE; URINE BENZODIAZEPINES SCREEN NEGATIVE; URINE COCAINE SCREEN NEGATIVE; URINE MARIJUANA (THC) SCREEN UNCONFIRMED POSITIVE; URINE METHADONE SCREEN NEGATIVE; URINE PHENCYCLIDINE SCREEN NEGATIVE
--- NOTE | 2018-03-11 19:57 | RADIOLOGY REPORT (SQ) ---
EXAM DESCRIPTION: CT ABD/PELVIS WITH IV ONLY COMPLETED DATE/TIME: 03/11/2018 7:43 pm REASON FOR STUDY: concern deep soft tissue abscess right abdomen wail COMPARISON: 07/03/2017 TECHNIQUE: CT scan of the abdomen and pelvis performed using helical scanning technique with dynamic intravenous contrast injection. No oral contrast. Images reviewed with lung, soft tissue, and bone windows. Reconstructed coronal and sagittal MPR images reviewed. Delayed images for evaluation of the urinary system also acquired. All images stored on PACS. All CT scanners at this facility use dose modulation, iterative reconstruction, and/or weight based d osing when appropriate to reduce radiation dose to as low as reasonably achievable (ALARA). [facility]: Dose Right [facility]: CareDose [facility]: Dose Right [facility]: Teradose 4D [facility]: Drive Power CONTRAST TYPE AND DOSE: contrast/concentration: Isovue 350.00 mg/ml; Total Contrast Delivered: 69.0 ml; Total Saline Delivered: 65.0 ml RENAL FUNCTION: BUN 24 creatinine 0.9 RADIATION DOSE: CT Rad equipment meets quality standard of care and radiation dose reduction techniq ues were employed. CTDIvol: 5.2 - 6.5 mGy. DLP: 557 mGy-cm.. LIMITATIONS: None. FINDINGS: LOWER CHEST: No significant findings. No nodules or infiltrates. LIVER: Normal size. No masses. No dilated ducts. SPLEEN: Normal size. No focal lesions. PANCREAS: No masses. No significant calcifications. No adjacent inflammation or peripancreatic fluid collections. Pancreatic duct not dilated. GALLBLADDER: A small gallstone is present. ADRENAL GLANDS: No significant masses or asymmetry. RIGHT KIDNEY AND URETER: No solid masses. No significant calcifications. No hydronephrosis or hyd roureter. LEFT KIDNEY AND URETER: No solid masses. No significant calcifications. No hydronephrosis or hydr oureter. AORTA AND VESSELS: No aneurysm. No dissection. Renal arteries, SMA, celiac without stenosis. RETROPERITONEUM: No retroperitoneal adenopathy, hemorrhage or masses. BOWEL AND PERITONEAL CAVITY: No masses or inflammatory changes. No free fluid or peritoneal masses. APPENDIX: Not identified. PELVIS: No mass. No free fluid. Normal bladder. ABDOMINAL WALL: No masses. No hernias. BONES: No significant or acute findings. OTHER: No other significant finding. IMPRESSION: There is a small gallstone. No other significant findings are present in the abdomen or pelvis. TECHNICAL DOCUMENTATION: JOB ID: [id number] Quality ID # [id number]: Final reports with documentation of one or more dose reduction techniques (e.g., Au tomated exposure control, adjustment of the mA and/or kV according to patient size, use of iterative reconstruction technique) 2010 [employer] All Rights Reserved Reading location - IP/workstation name: [email or web address]
--- NOTE | 2018-03-11 21:25 | RADIOLOGY REPORT (SQ) ---
NAME: NOREEN ISLAS PROCEDURE: US ABDOMEN LIMITED ORDER DATE: 03/11/2018 8:13 PM CONSULTING NURSE ACCESSION NUMBER: [id number] Clinical History: CT with gallstone and patient with right back pain Indication: Same as above Study completed: 03/11/2018 at 8:30 PM Comparison: CT of the abdomen and pelvis done on the same day . Technique: Landry scale evaluation of the right upper quadrant of the abdomen was done ultrasonographically along with limited color Doppler evaluation Findings: The gallbladder wall thickness is normal and measures 0.7 mm. There is a small intraluminal gallstone There is no pericholecystic fluid. There is no ultrasonographically positive Bloom's sign. The common duct is normal in transverse diameter and measures 0.8 mm. There is no intraductal common duct calculus. The liver measures 15.9 centimeters in length. There are no focal liver lesions. There is no intrahepatic biliary dilatation. The main portal vein is of normal caliber and shows normal hepatopedal blood flow. The hepatic veins are patent. The pancreas is unremarkable . The right kidney measures 10.8 cm in length. There is no hydronephrosis or nephrolithiasis in the right kidney. There is no documented ascitic fluid in the evaluated right upper quadrant of the abdomen. The visualized portion of the abdominal aorta and the inferior vena cava are unremarkable. There is no documented right-sided pleural effusion. Impression: Tiny intraluminal gallstone Location of Interpretation: Teleradiology
== END 2018-03-11 22:50 | disposition home or self-care (01) ==
LOC: ER 18:03
DX: K80.50 Calculus of bile duct without cholangitis or cholecystitis without obstruction (principal); R10.9 Unspecified abdominal pain; F19.90 Other psychoactive substance use, unspecified, uncomplicated; F17.210 Nicotine dependence, cigarettes, uncomplicated; Z86.19 Personal history of other infectious and parasitic diseases; Z88.2 Allergy status to sulfonamides; Z88.6 Allergy status to analgesic agent
CPT/HCPCS: 99406; 99285; 96361; 96374; 96375; 36415; 83690; 85025; 81025; 80053; 81001; 80307; 76705; 74177; J3010; J1885; J7030

== ENCOUNTER 2018-04-11 00:05 | Emergency (ER) | payer MEDICAID ==
[2018-04-11 01:23] VITALS: BP 146/97
--- NOTE | 2018-04-11 01:57 | ER Document Report ---
ED General - General Chief Complaint: burniing Stated Complaint: BURNING SENSATION THROUGH BODY Time Seen by Provider: 04/11/18 01:54 Notes: Patient is a 22-year-old female that comes to the emergency department for chief complaint of a burning sensation that she feels from her neck all the way down her back towards her lower back. 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 She denies injury to her back. She states she did injure her right knee and she had negative x-rays but it still hurts intermittently. She denies fever, focal numbness or weakness, incontinence. TRAVEL OUTSIDE OF THE [place] IN LAST 30 DAYS: No - Related Data Allergies/Adverse Reactions: hydrocodone bitartrate [From Vicodin] Allergy (Verified 03/11/18 18:05) itchy Sulfa (Sulfonamide Antibiotics) Allergy (Verified 03/11/18 18:05) Edema sulfamethoxazole [From Septra] Allergy (Verified 03/11/18 18:05) trimethoprim [From Septra] Allergy (Verified 03/11/18 18:05) Edema Past Medical History - General Information source: Patient - Social History Smoking Status: Never Smoker Lives with: Family Family History: Reviewed & Not Pertinent - Past Medical History Cardiac Medical History: Denies: Hx Coronary Artery Disease, Hx Heart Attack, Hx Hypertension Pulmonary Medical History: Reports: Hx Asthma, Hx Bronchitis Denies: Hx COPD, Hx Pneumonia Neurological Medical History: Denies: Hx Cerebrovascular Accident, Hx Seizures Renal/ Medical History: Denies: Hx Peritoneal Dialysis GI Medical History: Reports: Hx Hepatitis - Hepatitis c Musculoskeletal Medical History: Denies Hx Arthritis Psychiatric Medical History: Reports: Hx Anxiety Infectious Medical History: Reports: Hx Hepatitis - Hepatitis c Past Surgical History: Reports: Hx Oral Surgery - wisdom teeth, Hx Tonsillectomy, Hx Tubal Ligation - Immunizations Immunizations up to date: Yes Hx Diphtheria, Pertussis, Tetanus Vaccination: Yes Review of Systems - Review of Systems Constitutional: No symptoms reported EENT: No symptoms reported Cardiovascular: No symptoms reported Respiratory: No symptoms reported Gastrointestinal: No symptoms reported Genitourinary: No symptoms reported Female Genitourinary: No symptoms reported Musculoskeletal: See HPI Skin: No symptoms reported Hematologic/Lymphatic: No symptoms reported Neurological/Psychological: See HPI Physical Exam - Vital signs Vitals: Temp Pulse Resp BP Pulse Ox 97.8 F 81 18 146/97 H 100 04/11/18 01:11 04/11/18 01:11 04/11/18 01:11 04/11/18 01:11 04/11/18 01:11 - Notes Notes: GENERAL: Alert, interacts well. No acute distress. HEAD: Normocephalic, atraumatic. EYES: Pupils equal, round, and reactive to light. Extraocular movements intact. ENT: Oral mucosa moist, tongue midline. Oropharynx unremarkable. Airway patent. Nares patent, no nasal septal hematoma, TM's intact. NECK: Full range of motion. Supple. Trachea midline. LUNGS: Clear to auscultation bilaterally, no wheezes, rales, or rhonchi. No respiratory distress. HEART: Regular rate and rhythm. No murmur ABDOMEN: Soft, non-tender. Non-distended. Bowel sounds present in all 4 quadrants. GENITOURINARY: Deferred EXTREMITIES: Moves all 4 extremities spontaneously. No edema, normal radial and dorsalis pedis pulses bilaterally. No cyanosis. BACK: Non-tender back generally on palpation. No midline tenderness, no saddle anesthesia, no signs of trauma. Normal upper and lower extremity range of motion, normal strength, normal distal neurovascular exam. NEUROLOGICAL: Alert and oriented x3. Normal speech. [cranial nerves II through XII grossly intact]. PSYCH: Irritable, easily becomes annoyed or angry with a raised voice SKIN: Warm, dry, normal turgor. No rashes or lesions noted. Course - Re-evaluation Re-evalutation: Patient is very difficult to obtain history from. Any suggestion or question is immediately met with an angry response, she is repeatedly accusing me of not being willing to give her what she needs. She states she is here for an MRI of her back because of the inflammation her mind is causing. She denies SI or HI or concerns about this. She has no neurological deficits on evaluation, she ambulates any without difficulty. I offered her treatment for her back pain, she states that the pain cannot be treated because it is the nerves and not the muscles. I recommended we perform initial laboratory workup for back pain, x-ray of the knee, and then give further recommendations after this, she refused. She states if she is not going to get an MRI of her entire spine and her right knee at this time then she is leaving. I attempted to explain indications for MRI in the Emergent setting but patient continually cut me off. Initially she agreed to x-ray of the knee because she states she has not even sure that they x-rayed her knee correctly last time, but then she refused this as well. She then started accusing me of performing her exam incorrectly because despite having sanitized my hands I did not wear gloves when I evaluated her back. Relative at bedside asks for written recommendations for follow-up and states that otherwise they are ready to leave. This was provided. Patient walked easily out of the room. - Vital Signs Vital signs: Temp Pulse Resp BP Pulse Ox 97.8 F 81 18 146/97 H 100 04/11/18 01:11 04/11/18 01:11 04/11/18 01:11 04/11/18 01:11 04/11/18 01:11 Discharge - Discharge Clinical Impression: Back pain Qualifiers: Back pain location: back pain in unspecified location Chronicity: unspecified Back pain laterality: bilateral Qualified Code(s): M54.9 - Dorsalgia, unspecified Right knee pain Qualifiers: Chronicity: acute Qualified Code(s): M25.561 - Pain in right knee Condition: Stable Disposition: HOME, SELF-CARE Additional Instructions: In regards to your knee, because you have already had x-rays after the injury in your knee continues to bother you, I recommend ice 3-4 times a day, elevation, anti-inflammatory such as ibuprofen or naproxen, and if symptoms persist an MRI and orthopedic follow-up. See referral. In regards to the back, you have declined laboratory workup at this time, however I do recommend general laboratory workup and primary care follow-up. You can attempt to apply heat, do gentle stretches, continue current medications. Return if you worsen including vomiting, fever, inability to control your bladder or bowel, numbness, inability to walk, or any other concerning worsening symptoms.
== END 2018-04-11 02:05 | disposition home or self-care (01) ==
LOC: ER 00:05
DX: M25.561 Pain in right knee (principal); M54.9 Dorsalgia, unspecified; R20.8 Other disturbances of skin sensation; R45.4 Irritability and anger; J45.909 Unspecified asthma, uncomplicated; Z88.5 Allergy status to narcotic agent; Z88.2 Allergy status to sulfonamides; Z88.1 Allergy status to other antibiotic agents
CPT/HCPCS: 99283

== ENCOUNTER 2018-05-15 17:38 | Emergency (ER) | payer MEDICAID ==
[2018-05-15] MEDS ORDERED: HYDROXYZINE PAMOATE 25 MG CAPSULE PO ONE (19:42)
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
[2018-05-15 20:23] LABS: ABSOLUTE BASOPHILS # (AUTO) 0.1 10^3/uL (0.0-0.2); ABSOLUTE EOSINOPHILS # (AUTO) 0.2 10^3/uL (0.0-0.6); ABSOLUTE LYMPHOCYTES (AUTO) 4.4 10^3/uL (0.5-4.7); ABSOLUTE NEUT (AUTO) 3.5 10^3/uL (1.7-8.2); BASOPHILS % (AUTO) 0.6 % (0-2); EOSINOPHILS % (AUTO) 2.4 % (0-6); HEMATOCRIT 38.6 % (36.0-47.0); HEMOGLOBIN 13.6 g/dL (12.0-15.5); MEAN CORPUSCULAR HEMOGLOBIN 31.2 pg (27.0-33.4); MEAN CORPUSCULAR HGB CONC 35.4 g/dL (32.0-36.0); MEAN CORPUSCULAR VOLUME 88 fl (80-97); MONOCYTES % (AUTO) 10.7 % (3-13); PLATELET COUNT 289 10^3/uL (150-450); RED BLOOD COUNT 4.37 10^6/uL (3.72-5.28); RED CELL DISTRIBUTION WIDTH 13.5 % (11.5-14.0); SEGMENTED NEUTROPHILS % (AUTO) 38.3 % (42-78); TOTAL CELLS COUNTED % (AUTO) 100 %; WHITE BLOOD COUNT 9.2 10^3/uL (4.0-10.5)
[2018-05-15 20:51] LABS: ALANINE AMINOTRANSFERASE 78 U/L (9-52); ALBUMIN 4.3 g/dL (3.5-5.0); ALKALINE PHOSPHATASE 60 U/L (38-126); ANION GAP 9 (5-19); ASPARTATE AMINO TRANSFERASE 51 U/L (14-36); BILIRUBIN,DIRECT 0.2 mg/dL (0.0-0.4); BILIRUBIN,TOTAL 0.4 mg/dL (0.2-1.3); BLOOD UREA NITROGEN 17 mg/dL (7-20); CARBON DIOXIDE 29 mmol/L (22-30); CHLORIDE 104 mmol/L (98-107); GLUCOSE 100 mg/dL (75-110); POTASSIUM 4.2 mmol/L (3.6-5.0); SODIUM 141.9 mmol/L (137-145); TOTAL PROTEIN 7.4 g/dL (6.3-8.2)
[2018-05-15 20:53] LABS: ACETAMINOPHEN < 10 ug/mL (10-30); ALCOHOL < 10 mg/dL (NONE DETECTED); SALICYLATE < 1.0 mg/dL (2.0-20.0)
[2018-05-15 21:49] LABS: AMORPHOUS SEDIMENT,URINE TRACE /HPF; APPEARANCE,URINE CLOUDY; BILIRUBIN,URINE NEGATIVE (NEGATIVE); COLOR,URINE YELLOW; GLUCOSE, URINE NEGATIVE (NEGATIVE); KETONES,URINE NEGATIVE (NEGATIVE); LEUKOCYTE ESTERASE,URINE TRACE (NEGATIVE); NITRITE,URINE NEGATIVE (NEGATIVE); PROTEIN,URINE NEGATIVE (NEGATIVE); URINE SPECIFIC GRAVITY 1.023
[2018-05-15 21:59] LABS: URINE BARBITURATES SCREEN NEGATIVE; URINE BENZODIAZEPINES SCREEN NEGATIVE; URINE COCAINE SCREEN NEGATIVE; URINE METHADONE SCREEN NEGATIVE; URINE PHENCYCLIDINE SCREEN NEGATIVE
[2018-05-15 22:10] LABS: URINE MARIJUANA (THC) SCREEN UNCONFIRMED POSITIVE
--- NOTE | 2018-05-16 09:39 | ER Document Report ---
Doctor's Note Notes: 05/16/18 09:38 23-year-old female brought in for paranoid thoughts. Please see previous providers note. Patient is resting comfortably at this time. medical social worker/mental health providers have seen the patient. Currently on petition. Will continue to follow. Labs have been reviewed. 05/16/18 18:43 Patient was refusing to take the Zyprexa. States that she had an allergy to it. Patient remains paranoid. At this time I have ordered Haldol and Cogentin IM. We will place her on Haldol. This has seemed to work. We will continue to follow.
[2018-05-16] MEDS ORDERED: BENZTROPINE MESYLATE 1 MG TABLET PO SCH (12:15)
[2018-05-16] MEDS ORDERED: HALOPERIDOL LACTATE INJ 5 MG/1 ML VIAL IM ONE (13:05)
[2018-05-16] MEDS ORDERED: BENZTROPINE MESYLATE INJ 2 MG/2 ML AMPULE IM SCH (13:15)
[2018-05-16] MEDS: OLANZAPINE 5 MG TABLET PO SCH ×2 (13:32→19:00)
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
--- NOTE | 2018-05-16 22:09 | EKG REPORT ---
SEVERITY:- NORMAL ECG - SINUS RHYTHM : Confirmed by: Duane Domínguez 16-May-2018 22:09:04
--- NOTE | 2018-05-17 09:15 | ER Document Report ---
Doctor's Note Notes: 05/17/18 10:17 23-year-old female with persistent labile bashir. We tried Haldol IM yesterday and that did seem to work however mental health has requested that we try Geodon IM and Thorazine IM as well as Cogentin IM as patient is refusing her medications once more. Will try Geodon 20 mg every 6 and Thorazine IM 50 mg ev regino 8 as needed and Cogentin 1 mg IM twice daily. 05/17/18 10:19
[2018-05-17] MEDS ORDERED: HALOPERIDOL 5 MG TABLET PO SCH (10:00)
[2018-05-17] MEDS ORDERED: CHLORPROMAZINE HCL INJ 25 MG/1 ML AMPULE IM PRN (10:20)
[2018-05-17] MEDS: BENZTROPINE MESYLATE INJ 2 MG/2 ML AMPULE IM SCH ×2 (10:34→17:58)
[2018-05-17] MEDS: ZIPRASIDONE MESYLATE INJ/PF 20 MG SDV IM SCH (17:58)
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
[2018-05-18] MEDS: ZIPRASIDONE MESYLATE INJ/PF 20 MG SDV IM SCH ×2 (01:09→05:45)
[2018-05-18] MEDS: BENZTROPINE MESYLATE INJ 2 MG/2 ML AMPULE IM SCH (09:20)
--- NOTE | 2018-05-18 10:23 | ER Document Report ---
Doctor's Note Notes: 05/18/18 10:22 Rounds: Chart reviewed and patient interviewed. Patient is being evaluated for depression and suicidal thoughts. Patient says she is not feeling any better and since she got here. Lab studies were all essentially normal except being positive for marijuana and amphetamines on her drug screen. Patient denies being on any stimulant medications or any use of amphetamines, methamphetamines, etc. Patient's speech and activities are hyper. Vital signs are all essentially normal. Patient appears to be medically stable for transfer or discharge. Mimi Snider MD
[2018-05-18] MEDS: ZIPRASIDONE HCL 20 MG CAPSULE PO SCH ×2 (11:16→16:30)
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
[2018-05-18] MEDS: BENZTROPINE MESYLATE 1 MG TABLET PO SCH (18:10)
[2018-05-19] MEDS: ZIPRASIDONE HCL 20 MG CAPSULE PO SCH ×2 (02:23→10:04)
--- NOTE | 2018-05-19 09:46 | ER Document Report ---
Doctor's Note Notes: 05/19/18 09:46 23-year-old female with past medical history of depression with a suicide attempt at 14 and a history of substance abuse who recently got out of [facility] ago and is not taking the Geodon she is supposed to be taking who presents today stating that she feels slightly depressed. She denies any suicidal or homicidal ideations. Labs and vital signs as recorded. Awaiting psychiatry/psychology disposition and treatment plan. 05/19/18 12:23 The psychology/psychiatry team is seen and assessed the patient I do not believe she feels IVC criteria at this time. They would like to discharge the patient home. Given that they are the experts at this facility, we will follow the guidance. Patient will be discharged home with the onset of new medications as well as follow-up with outpatient resources we have provided and the crisis connection contact number. Patient's boyfriend is comfortable with the patient going home and will pick her up. Patient is currently denying any auditory or visual hallucinations. She is denying any suicidal homicidal ideations. Patient already has the medications at home.
[2018-05-19] MEDS: BENZTROPINE MESYLATE 1 MG TABLET PO SCH (10:04)
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
[2018-05-19 14:29] VITALS: BP 109/74
== END 2018-05-19 14:29 | disposition home or self-care (01) ==
LOC: ER 17:38
DX: F31.9 Bipolar disorder, unspecified (principal); F43.10 Post-traumatic stress disorder, unspecified; F60.3 Borderline personality disorder; Z63.8 Other specified problems related to primary support group; Z91.14 Patient's other noncompliance with medication regimen; Z88.2 Allergy status to sulfonamides; Z88.6 Allergy status to analgesic agent; Z88.3 Allergy status to other anti-infective agents; F17.200 Nicotine dependence, unspecified, uncomplicated; Z86.19 Personal history of other infectious and parasitic diseases; Z98.51 Tubal ligation status
CPT/HCPCS: 93005; 99285; 96372; 36415; 80307 ×4; 84703; 85025; 80053; 81001; 93010; J3490 ×2; J0515 ×3; J3230; J1630; J3486 ×2

== ENCOUNTER 2018-08-21 09:05 | Emergency (ER) | payer MEDICAID, OTHER ==
[2018-08-21] MEDS ORDERED: KETOROLAC TROMETHAMINE INJ/PF 30 MG/1 ML SDV IV ONE ×2 (09:13→14:21)
[2018-08-21] MEDS ORDERED: ONDANSETRON HCL INJ/PF 4 MG/2 ML SDV IV ONE ×2 (09:13→14:21)
[2018-08-21] MEDS ORDERED: NORMAL SALINE 1000 ML 1,000 ML IV ONE ×2 (09:13→14:21)
--- NOTE | 2018-08-21 09:14 | ER Document Report ---
ED Medical Screen (RME) - General Chief Complaint: Back Pain Stated Complaint: BACK PAIN Time Seen by Provider: 08/21/18 09:11 Mode of Arrival: Wheelchair Information source: Patient Notes: Patient is an otherwise healthy 23-year-old female presenting with 3-day history of right-sided flank pain with nausea, vomiting, diarrhea and chills. Patient also complains of right ear pain. Patient has positive CVA tenderness on the right side. Denies any history of kidney infections. I have greeted and performed a rapid initial assessment of this patient. A comprehensive ED assessment and evaluation of the patient, analysis of test results and completion of the medical decision making process will be conducted by additional ED providers. Dictation of this chart was performed using voice recognition software; therefore, there may be some unintended grammatical errors. TRAVEL OUTSIDE OF THE [place] IN LAST 30 DAYS: No - Related Data Allergies/Adverse Reactions: hydrocodone bitartrate [From Vicodin] Allergy (Verified 08/21/18 09:07) itchy Sulfa (Sulfonamide Antibiotics) Allergy (Verified 08/21/18 09:07) Edema sulfamethoxazole [From Septra] Allergy (Verified 08/21/18 09:07) trimethoprim [From Septra] Allergy (Verified 08/21/18 09:07) Edema Past Medical History - Past Medical History Cardiac Medical History: Denies: Hx Coronary Artery Disease, Hx Heart Attack, Hx Hypertension Pulmonary Medical History: Reports: Hx Asthma, Hx Bronchitis Denies: Hx COPD, Hx Pneumonia Neurological Medical History: Denies: Hx Cerebrovascular Accident, Hx Seizures Renal/ Medical History: Denies: Hx Peritoneal Dialysis GI Medical History: Reports: Hx Hepatitis - Hepatitis c Musculoskeltal Medical History: Denies Hx Arthritis Psychiatric Medical History: Reports: Hx Anxiety Infectious Medical History: Reports: Hx Hepatitis - Hepatitis c Past Surgical History: Reports: Hx Oral Surgery - wisdom teeth, Hx Tonsillectomy, Hx Tubal Ligation - Immunizations Immunizations up to date: Yes Hx Diphtheria, Pertussis, Tetanus Vaccination: Yes
[2018-08-21 10:00] LABS: ABSOLUTE BASOPHILS # (AUTO) 0.1 10^3/uL (0.0-0.2); ABSOLUTE LYMPHOCYTES (AUTO) 2.9 10^3/uL (0.5-4.7); ABSOLUTE MONOCYTES (AUTO) 2.3 10^3/uL (0.1-1.4); ABSOLUTE NEUT (AUTO) 11.8 10^3/uL (1.7-8.2); BASOPHILS % (AUTO) 0.3 % (0-2); EOSINOPHILS % (AUTO) 0.3 % (0-6); HEMATOCRIT 39.3 % (36.0-47.0); HEMOGLOBIN 13.6 g/dL (12.0-15.5); LYMPHOCYTES % (AUTO) 16.9 % (13-45); MEAN CORPUSCULAR HEMOGLOBIN 30.4 pg (27.0-33.4); MEAN CORPUSCULAR HGB CONC 34.5 g/dL (32.0-36.0); MEAN CORPUSCULAR VOLUME 88 fl (80-97); MONOCYTES % (AUTO) 13.4 % (3-13); PLATELET COUNT 214 10^3/uL (150-450); RED BLOOD COUNT 4.47 10^6/uL (3.72-5.28); SEGMENTED NEUTROPHILS % (AUTO) 69.1 % (42-78); TOTAL CELLS COUNTED % (AUTO) 100 %; WHITE BLOOD COUNT 17.1 10^3/uL (4.0-10.5)
[2018-08-21 10:26] LABS: ALANINE AMINOTRANSFERASE 52 U/L (9-52); ALBUMIN 4.4 g/dL (3.5-5.0); ALKALINE PHOSPHATASE 74 U/L (38-126); ANION GAP 13 (5-19); ASPARTATE AMINO TRANSFERASE 39 U/L (14-36); BILIRUBIN,DIRECT 0.4 mg/dL (0.0-0.4); BILIRUBIN,TOTAL 0.9 mg/dL (0.2-1.3); BLOOD UREA NITROGEN 9 mg/dL (7-20); CALCIUM 9.6 mg/dL (8.4-10.2); CARBON DIOXIDE 25 mmol/L (22-30); CHLORIDE 97 mmol/L (98-107); GLUCOSE 101 mg/dL (75-110); POTASSIUM 3.9 mmol/L (3.6-5.0); SODIUM 135.4 mmol/L (137-145); TOTAL PROTEIN 7.8 g/dL (6.3-8.2)
--- NOTE | 2018-08-21 10:45 | ER Document Report ---
ED General Pain - General Chief Complaint: Back Pain Stated Complaint: BACK PAIN Time Seen by Provider: 08/21/18 09:11 Primary Care Provider: [facility] [Provider Group] - Follow up as needed Mode of Arrival: Wheelchair Notes: 23-year-old female patient emergency department chief complaint of right flank pain. Has a history of pyelonephritis. Has been admitted in the past. Began having some pain in the right flank with some mild discomfort with urination. Chills at home but does not think she had a fever. Having some nausea. TRAVEL OUTSIDE OF THE [place] IN LAST 30 DAYS: No - HPI Onset: Yesterday Onset/Duration: Gradual, Worse Quality of pain: Stabbing Severity: Moderate Pain Level: 4 Exacerbated by: Movement - Related Data Allergies/Adverse Reactions: hydrocodone bitartrate [From Vicodin] Allergy (Verified 08/21/18 09:07) itchy Sulfa (Sulfonamide Antibiotics) Allergy (Verified 08/21/18 09:07) Edema sulfamethoxazole [From Septra] Allergy (Verified 08/21/18 09:07) trimethoprim [From Septra] Allergy (Verified 08/21/18 09:07) Edema Past Medical History - General Information source: Patient - Social History Smoking Status: Current Every Day Smoker Cigarette use (# per day): Yes Frequency of alcohol use: None Drug Abuse: None Lives with: Family Family History: Reviewed & Not Pertinent Patient has suicidal ideation: No Patient has homicidal ideation: No - Past Medical History Cardiac Medical History: Denies: Hx Coronary Artery Disease, Hx Heart Attack, Hx Hypertension Pulmonary Medical History: Reports: Hx Asthma, Hx Bronchitis Denies: Hx COPD, Hx Pneumonia Neurological Medical History: Denies: Hx Cerebrovascular Accident, Hx Seizures Renal/ Medical History: Denies: Hx Peritoneal Dialysis GI Medical History: Reports: Hx Hepatitis - Hepatitis c Musculoskeletal Medical History: Denies Hx Arthritis Psychiatric Medical History: Reports: Hx Anxiety Infectious Medical History: Reports: Hx Hepatitis - Hepatitis c Past Surgical History: Reports: Hx Oral Surgery - wisdom teeth, Hx Tonsillectom y, Hx Tubal Ligation - Immunizations Immunizations up to date: Yes Hx Diphtheria, Pertussis, Tetanus Vaccination: Yes Review of Systems - Review of Systems Notes: Constitutional: denies: Chills, Diaphoresis, +Fever, Malaise, Weakness, + chills EENT: denies: Eye discharge, Blurred vision, Tearing, Double vision, Nose congestion, Nose discharge, Throat swelling, Mouth pain Cardiovascular: denies: Palpitations, Heart racing, Orthopnea, Dyspnea, Chest pain Respiratory: denies: Cough, Hurts to breathe, Wheezing, Shortness of breath Gastrointestinal: denies: Abdominal pain, Diarrhea, Nausea, Vomiting, Black stools, bright red blood in stool Genitourinary: +Burning, +Dysuria, -Discharge, +Frequency,+Flank pain, Hematuria Musculoskeletal: denies: Joint pain, Joint swelling, Muscle pain, Muscle stiffness, back pain Hematologic/Lymphatic: denies: Anemia, Easy bleeding, Easy bruising, Blood clots Neurological/Psychological: denies: Confusion, Dementia, Depression, Loss of consciousness Skin: No lesions, no masses, no skin breakdown, no abscesses Physical Exam - Vital signs Vitals: Temp Pulse Resp BP Pulse Ox 98.5 F 112 H 20 122/75 97 08/21/18 09:10 08/21/18 09:10 08/21/18 09:10 08/21/18 09:10 08/21/18 09:10 Interpretation: Tachycardic - General General appearance: Appears well, Alert - HEENT Head: Normocephalic, Atraumatic Eyes: Normal Pupils: PERRL - Respiratory Respiratory status: No respiratory distress Chest status: Nontender Breath sounds: Normal Chest palpation: Normal - Cardiovascular Rhythm: Tachycardia Heart sounds: Normal auscultation Murmur: No - Abdominal Inspection: Normal Distension: No distension Bowel sounds: Normal Tenderness: Nontender Organomegaly: No organomegaly - Back Back: Normal, CVA tenderness - Tenderness on the right flank. - Extremities General upper extremity: Normal inspection, Nontender, Normal color, Normal ROM, Normal temperature General lower extremity: Normal inspection, Nontender, Normal color, Normal ROM, Normal temperature, Normal weight bearing. No: Vanessa's sign - Neurological Neuro grossly intact: Yes Cognition: Normal Orientation: AAOx4 Soila Coma Scale Eye Opening: Spontaneous Soila Coma Scale Verbal: Oriented Soila Coma Scale Motor: Obeys Commands Soila Coma Scale Total: 15 Speech: Normal Motor strength normal: LUE, RUE, LLE, RLE Sensory: Normal - Psychological Associated symptoms: Normal affect, Normal mood - Skin Skin Temperature: Hot Skin Moisture: Dry Skin Color: Normal Course - Re-evaluation Re-evalutation: 08/21/18 13:35 Laboratory 08/21/18 08/21/18 08/21/18 09:43 09:43 09:43 WBC 17.1 H RBC 4.47 Hgb 13.6 Hct 39.3 MCV 88 MCH 30.4 MCHC 34.5 RDW 13.0 Plt Count 214 Seg Neutrophils % 69.1 Lymphocytes % 16.9 Monocytes % 13.4 H Eosinophils % 0.3 Basophils % 0.3 Absolute Neutrophils 11.8 H Absolute Lymphocytes 2.9 Absolute Monocytes 2.3 H Absolute Eosinophils 0.0 Absolute Basophils 0.1 Sodium 135.4 L Potassium 3.9 Chloride 97 L Carbon Dioxide 25 Anion Gap 13 BUN 9 Creatinine 0.70 Est GFR ( Amer) > 60 Est GFR (Non-Af Amer) > 60 Glucose 101 Calcium 9.6 Total Bilirubin 0.9 Direct Bilirubin 0.4 Neonat Total Bilirubin Not Reportable Neonat Direct Bilirubin Not Reportable Neonat Indirect Bili Not Reportable AST 39 H ALT 52 Alkaline Phosphatase 74 Total Protein 7.8 Albumin 4.4 Serum HCG, Qual NEGATIVE Urine Color Urine Appearance Urine pH Ur Specific [place] Urine Protein Urine Glucose (UA) Urine Ketones Urine Blood Urine Nitrite Urine Bilirubin Urine Urobilinogen Ur Leukocyte Esterase Urine WBC (Auto) Urine RBC (Auto) Urine Bacteria (Auto) Squamous Epi Cells Auto Urine Mucus (Auto) Urine Ascorbic Acid 08/21/18 12:12 WBC RBC Hgb Hct MCV MCH MCHC RDW Plt Count Seg Neutrophils % Lymphocytes % Monocytes % Eosinophils % Basophils % Absolute Neutrophils Absolute Lymphocytes Absolute Monocytes Absolute Eosinophils Absolute Basophils Sodium Potassium Chloride Carbon Dioxide Anion Gap BUN Creatinine Est GFR ( Amer) Est GFR (Non-Af Amer) Glucose Calcium Total Bilirubin Direct Bilirubin Neonat Total Bilirubin Neonat Direct Bilirubin Neonat Indirect Bili AST ALT Alkaline Phosphatase Total Protein Albumin Serum HCG, Qual Urine Color YELLOW Urine Appearance SLIGHTLY-CLOUDY Urine pH 6.0 Ur Specific [place] 1.012 Urine Protein 30 H Urine Glucose (UA) NEGATIVE Urine Ketones 20 H Urine Blood SMALL H Urine Nitrite POSITIVE H Urine Bilirubin NEGATIVE Urine Urobilinogen NEGATIVE Ur Leukocyte Esterase TRACE H Urine WBC (Auto) 11 Urine RBC (Auto) 1 Urine Bacteria (Auto) TRACE Squamous Epi Cells Auto <1 Urine Mucus (Auto) RARE Urine Ascorbic Acid NEGATIVE Renal Ultrasound 08/21/18 11:34 IMPRESSION: Normal kidneys. Cholelithiasis. Patient has a large amount of positive nitrite and leukocytes and WBCs and bacteria. Based on her exam she has pyelonephritis. Her heart rate is coming down nicely. She is afebrile. Tolerating p.o. Antibiotics have been given. More likely she can be discharged and treated as an outpatient for pyelonephriti s. Lactate less than 1. Vital signs improving. Should be able to tolerate outpatient therapy. Will discharge at this time in stable condition peer 08/21/18 13:41 08/21/18 14:22 Patient is now vomiting. She definitely has clinical pyelonephritis. She does not want to be admitted. I have instructed her though that if she continues to vomit and cannot hold on her medication he will need to be admitted. I am going to give her some more fluids and some more Zofran and then we will reassess. 08/21/18 18:55 Patient tolerated p.o. was able to keep medications down. Strict instructions were given if she starts vomiting and cannot keep her medications down she should return immediately as pyelonephritis can be deadly. Conversation had in the presence of another adult who is going to be watching her over her while she is sick. Patient was discharged in stable condition. - Vital Signs Vital signs: Temp Pulse Resp BP Pulse Ox 100.3 F 97 17 103/59 L 100 08/21/18 15:52 08/21/18 15:52 08/21/18 15:52 08/21/18 15:52 08/21/18 15:52 - Laboratory Result Diagrams: 08/21/18 09:43 08/21/18 09:43 Laboratory results interpreted by me: 08/21/18 08/21/18 08/21/18 09:43 09:43 12:12 WBC 17.1 H Monocytes % 13.4 H Absolute Neutrophils 11.8 H Absolute Monocytes 2.3 H Sodium 135.4 L Chloride 97 L AST 39 H Urine Protein 30 H Urine Ketones 20 H Urine Blood SMALL H Urine Nitrite POSITIVE H Ur Leukocyte Esterase TRACE H Discharge - Discharge Clinical Impression: Pyelonephritis Condition: Good Disposition: HOME, SELF-CARE Instructions: Ciprofloxacin ([facility]), Pyelonephritis ([facility]) Additional Instructions: Please drink plenty of liquids. Motrin or Tylenol every 8 hours. May alternate with either Motrin or Tylenol and therefore take something every 4 hours. Take all of your antibiotics as prescribed. Follow-up with your regular doctor. In the event that your symptoms are getting worse or no better please return for repeat evaluation. Prescriptions: Ciprofloxacin HCl [Cipro 500 mg Tablet] 500 mg PO BID 10 Days #20 tablet Ibuprofen [Motrin 800 mg Tablet] 800 mg PO Q8H PRN 10 Days #30 tab PRN Reason: For Pain Scale 3-4 Ondansetron [Zofran Odt 4 mg Tablet] 1 - 2 tab PO Q4H PRN #15 tab.rapdis PRN Reason: For Nausea/Vomiting Referrals: [facility] [Provider Group] - Follow up as needed
[2018-08-21] MEDS ORDERED: CEFTRIAXONE 1 GM/D5W RTU 1 GM/50 ML RTUPB IV ONE (11:34)
--- NOTE | 2018-08-21 12:33 | RADIOLOGY REPORT (SQ) ---
EXAM DESCRIPTION: U/S [employer] COMPLETED DATE/TIME: 08/21/2018 12:23 pm REASON FOR STUDY: right flank pain COMPARISON: None. TECHNIQUE: Dynamic and static grayscale images acquired of the kidneys and bladder and recorded on P ACS. Additional selected color Doppler and spectral images recorded. LIMITATIONS: None. FINDINGS: RIGHT KIDNEY: Normal size, 11.7 cm. Normal echogenicity. No solid or suspicious shiv s. No hydronephrosis. No calcifications. LEFT KIDNEY: Normal size, 11.3 cm. Normal echogenicity. No solid or suspicious masses. No hydr onephrosis. No calcifications. BLADDER: Incompletely filled. No obvious mass. OTHER FINDINGS: Contracted gallbladder with gallstone. IMPRESSION: Normal kidneys. Cholelithiasis. TECHNICAL DOCUMENTATION: JOB ID: [id number] [email or web address]- All Rights Reserved Reading location - IP/workstation name: [email or web address]
[2018-08-21 12:40] LABS: APPEARANCE,URINE SLIGHTLY-CLOUDY; BILIRUBIN,URINE NEGATIVE (NEGATIVE); COLOR,URINE YELLOW; GLUCOSE, URINE NEGATIVE (NEGATIVE); KETONES,URINE 20 mg/dL (NEGATIVE); LEUKOCYTE ESTERASE,URINE TRACE (NEGATIVE); NITRITE,URINE POSITIVE (NEGATIVE); PROTEIN,URINE 30 mg/dL (NEGATIVE); URINE SPECIFIC GRAVITY 1.012; UROBILINOGEN,URINE NEGATIVE mg/dL (<2.0)
[2018-08-21] MEDS ORDERED: ACETAMINOPHEN 325 MG TABLET PO ONE (15:37)
[2018-08-21 16:07] VITALS: BP 103/59
== END 2018-08-21 16:10 | disposition home or self-care (01) ==
LOC: ER 09:05
DX: N12 Tubulo-interstitial nephritis, not specified as acute or chronic (principal); R10.9 Unspecified abdominal pain; R00.0 Tachycardia, unspecified; F17.210 Nicotine dependence, cigarettes, uncomplicated; Z86.19 Personal history of other infectious and parasitic diseases; Z88.6 Allergy status to analgesic agent; Z88.2 Allergy status to sulfonamides; Z88.3 Allergy status to other anti-infective agents
CPT/HCPCS: 96376; 99284; 96361; 96375; 96365; 36415; 87040; 87086; 84703; 85025; 87088; 80053; 81001; 87186; 83605; 76775; J1885; J2405; J7030; J0696

== ENCOUNTER 2019-04-06 09:00 | Emergency (ER) | payer SELFPAY ==
[2019-04-06] MEDS ORDERED: OXYCODONE-ACETAMINOPHEN 5-325 MG TABLET PO ONE (10:00)
[2019-04-06] MEDS ORDERED: IBUPROFEN 400 MG TABLET PO ONE (10:01)
--- NOTE | 2019-04-06 10:06 | ER Document Report ---
ED General - General Chief Complaint: Rib Pain Stated Complaint: LEFT SIDE RIB PAIN/INJURY Time Seen by Provider: 04/06/19 10:00 Mode of Arrival: Wheelchair Information source: Patient Notes: 23-year-old female presented to ED for complaint of left rib pains. She states she was fragment of wall when the wall fell on her injuring her ribs and her thighs. She states her thighs are just bruised she does not need x-rays of them but her ribs are very painful. She is alert oriented respirations regular nonlabored speaking in full sentences walks with a even steady gait. She does have clear lung sounds. TRAVEL OUTSIDE OF THE [place] IN LAST 30 DAYS: No - HPI Onset: This morning Onset/Duration: Sudden Quality of pain: Sharp, Throbbing Severity: Severe Pain Level: 5 Associated symptoms: Chest pain - From a wall falling on her chest. Exacerbated by: Movement, Walking, Deep breathing Relieved by: Denies Similar symptoms previously: No Recently seen / treated by doctor: No - Related Data Allergies/Adverse Reactions: hydrocodone bitartrate [From Vicodin] Allergy (Verified 08/21/18 09:07) itchy Sulfa (Sulfonamide Antibiotics) Allergy (Verified 08/21/18 09:07) Edema sulfamethoxazole [From Septra] Allergy (Verified 08/21/18 09:07) trimethoprim [From Septra] Allergy (Verified 08/21/18 09:07) Edema Past Medical History - General Information source: Patient - Social History Smoking Status: Current Every Day Smoker Cigarette use (# per day): Yes - 7 cigarettes a day Smoking Education Provided: Yes - 4 minutes Frequency of alcohol use: None Drug Abuse: None Lives with: Spouse/Significant other Family History: Reviewed & Not Pertinent Patient has suicidal ideation: No Patient has homicidal ideation: No - Past Medical History Cardiac Medical History: Reports: None Pulmonary Medical History: Reports: Hx Asthma, Hx Bronchitis EENT Medical History: Reports: None Neurological Medical History: Reports: None Endocrine Medical History: Reports: None Renal/ Medical History: Reports: None Malignancy Medical History: Reports: None GI Medical History: Reports: Hx Hepatitis - Hepatitis c Musculoskeletal Medical History: Reports None Skin Medical History: Reports None Psychiatric Medical History: Reports: Hx Anxiety Traumatic Medical History: Reports: None Infectious Medical History: Reports: Hx Hepatitis - Hepatitis c Past Surgical History: Reports: Hx Oral Surgery - wisdom teeth, Hx Tonsillectomy, Hx Tubal Ligation - Immunizations Immunizations up to date: Yes Hx Diphtheria, Pertussis, Tetanus Vaccination: Yes Review of Systems - Review of Systems Constitutional: No symptoms reported EENT: No symptoms reported Cardiovascular: No symptoms reported Respiratory: Short of breath, Other - Pain to left ribs Gastrointestinal: No symptoms reported Genitourinary: No symptoms reported Female Genitourinary: No symptoms reported Musculoskeletal: No symptoms reported Skin: No symptoms reported Hematologic/Lymphatic: No symptoms reported Neurological/Psychological: No symptoms reported -: Yes All other systems reviewed and negative Physical Exam - Vital signs Vitals: Temp Pulse Resp BP Pulse Ox 98.4 F 80 18 113/73 99 04/06/19 09:23 04/06/19 09:23 04/06/19 09:23 04/06/19 09:23 04/06/19 09:23 Interpretation: Normal - General General appearance: Appears well, Alert - HEENT Head: Normocephalic, Atraumatic Eyes: Normal Pupils: PERRL - Respiratory Respiratory status: No respiratory distress Chest status: Tender, Pain on movement, Pain with cough, Pain with deep breathing Chest palpation: Normal - Cardiovascular Rhythm: Regular Heart sounds: Normal auscultation Murmur: No - Abdominal Inspection: Normal Distension: No distension Bowel sounds: Normal Tenderness: Nontender Organomegaly: No organomegaly - Back Back: Normal, Nontender - Extremities General upper extremity: Normal inspection, Nontender, Normal color, Normal ROM, Normal temperature General lower extremity: Normal inspection, Nontender, Normal color, Normal ROM, Normal temperature, Normal weight bearing. No: Vanessa's sign - Neurological Neuro grossly intact: Yes Cognition: Normal Orientation: AAOx4 Soila Coma Scale Eye Opening: Spontaneous Soila Coma Scale Verbal: Oriented Soila Coma Scale Motor: Obeys Commands Soila Coma Scale Total: 15 Speech: Normal Motor strength normal: LUE, RUE, LLE, RLE Sensory: Normal - Psychological Associated symptoms: Normal affect, Normal mood - Skin Skin Temperature: Warm Skin Moisture: Dry Skin Color: Normal Course - Re-evaluation Re-evalutation: 04/06/19 11:45 X-rays discussed with patient written report of x-ray given to patient for follow-up with primary doctor. Patient was treated with a oxycodone and ibuprofen in the emergency room and discharged home with a prescription for ibuprofen. She was also discharged home with incentive spirometry. Patient was encouraged to use ice to the area and follow-up with the primary doctor. List of primary doctors was provided. Patient was able to verbalize understanding and agreement treatment plan patient was discharged home. - Vital Signs Vital signs: Temp Pulse Resp BP Pulse Ox 98.4 F 80 18 113/73 99 04/06/19 09:23 04/06/19 09:23 04/06/19 09:23 04/06/19 09:23 04/06/19 09:23 - Diagnostic Test Radiology reviewed: Image reviewed, Reports reviewed Discharge - Discharge Clinical Impression: Contusion of rib on left side Qualifiers: Encounter type: initial encounter Qualified Code(s): S20.212A - Contusion of left front wall of thorax, initial encounter Knee contusion Qualifiers: Encounter type: initial encounter Laterality: unspecified laterality Qualified Code(s): S80.00XA - Contusion of unspecified knee, initial encounter Condition: Stable Disposition: HOME, SELF-CARE Additional Instructions: CONTUSION: Your injury has resulted in a contusion -- a crushing of the deep tissues. No injury to important structures was detected during the physician's exam. Contusions vary in the amount of pain they cause, and in the length of time required for healing. Typically, the area will become bruised, and will remain painful to touch for two or three weeks. However, most patients are back to working and playing within a few days. After the initial period of rest and cold-packs, your symptoms (together with the doctor's recommendations) will determine how rapidly you can get back to full activity. Usually this means "do what feels okay, but don't do things that hurt." If re-examination was recommended, it's important to follow up as inst ructed. Call the doctor or return any time if pain increases, if swelling becomes severe, if you develop numbness or weakness in an injured extremity, or if any other alarming symptoms occur. USE OF TYLENOL (ACETAMINOPHEN): Acetaminophen may be taken for pain relief or fever control. It's much safer than aspirin, offering a wider range of "safe" dosages. It is safe during . Some brand names are Tylenol, Panadol, Datril, Anacin 3, Tempra, and Liquiprin. Acetaminophen can be repeated every four hours. The following are maximum recommended dosages: WEIGHT Dose Drops Elixir Chewable(80mg) (LBS.) drprs=droppers tsp=teaspoon 6 40 mg 0.4 ml (1/2) 6-11 80 mg 0.8 ml (full) tsp 1 tab 12-16 120 mg 1 1/2 drprs 3/4 tsp 1 1/2 tabs 17-23 160 mg 2 drprs 1 tsp 2 tabs 24-30 240 mg 3 drprs 1 1/2 tsp 3 tabs 30-35 320 mg 2 tsp 4 tabs 36-41 360 mg 2 1/4 tsp 4 1/2 tabs 42-47 400 mg 2 1/2 tsp 5 tabs 48-53 480 mg 3 tsp 6 tabs 54-59 520 mg 3 1/4 tsp 6 1/2 tabs 60-64 560 mg 3 1/2 tsp 7 tabs 65-70 600 mg 3 3/4 tsp 7 1/2 tabs 71-76 640 mg 4 tsp 8 tabs 77-82 720 mg 4 1/2 tsp 9 tabs 83-88 800 mg 5 tsp 10 tabs >89 pounds or adults 650 mg to 900 mg Acetaminophen can be repeated every four hours. Maximum dose not to exceed 4000 mg a day. These maximum recommended dosages are slightly higher than the dosages written on the product container, but these dosages are very safe and below the toxic dosage for acetaminophen. ICE PACKS: Apply ice packs frequently against the painful area. Many different schedules are recommended, such as "20 minutes on, 20 minutes off" or "one hour ice, two hours rest." If you need to work, you may need to go longer between ice treatments. You should plan to have the area ice packed AT LEAST one fourth of the time. The ice should be applied over the wrap, tape, or splint, or over a layer of cloth -- not directly against the skin. Some ice bags have a built-in cloth and can be put directly on the skin. WARM PACKS: After approximately two days, apply gentle heat (such as a heating pad or hot water bottle) for about 20 to 30 minutes about every two hours -- at least four times daily. Warmth and elevation will help you make a more rapid recovery, and will ease the pain considerably. Do not use HOT heat, and never apply heat for longer than 30 minutes. The continuous heat can invisibly damage skin and muscles -- even when no burn is seen on the surface. Damaged muscles can make you MORE sore. ORAL NARCOTIC MEDICATION: You have been given an oxycondone for pain control. This medication is a narcotic. It's best taken with food, as nausea can result if taken on an empty stomach. Don't operate machinery or drive within six hours of taking this medication. Do not combine this medicine with alcohol, or with any medication which can cause sedation (such as cold tablets or sleeping pills) unless you get permission from the physician. Narcotics tend to cause constipation. If possible, drink plenty of fluids and eat a diet high in fiber and fruits. FOLLOW-UP CARE: If you have been referred to a physician for follow-up care, call the physicians office for an appointment as you were instructed or within the next two days. If you experience worsening or a significant change in your symptoms, notify the physician immediately or return to the Emergency Department at any time for re-evaluation. Prescriptions: Ibuprofen [Motrin 600 mg Tablet] 600 mg PO Q8HP PRN #20 tablet PRN Reason: Forms: Smoking Cessation Education, Return to Work Referrals: [facility] [Provider Group] - Follow up as needed [facility] [Provider Group] - Follow up as needed [facility] [Provider Group] - Follow up as needed [facility] [Provider Group] - Follow up as needed
--- NOTE | 2019-04-06 11:12 | RADIOLOGY REPORT (SQ) ---
EXAM DESCRIPTION: RIBS LEFT W/PA CHEST COMPLETED DATE/TIME: 04/06/2019 10:45 am REASON FOR STUDY: pain injury COMPARISON: None. TECHNIQUE: A PA view of the chest, and P and oblique views of the left ribs were obtained. NUMBER OF VIEWS: Four views. LIMITATIONS: None. FINDINGS: FRONTAL CXR: The cardiomediastinal silhouette and pulmonary vasculature are within normal limits. There is no consolidation, pleural effusion or pneumothorax. RIBS: No displaced rib fracture. OTHER: No other finding. IMPRESSION: 1. No acute cardiopulmonary process. 2. No displaced rib fracture. COMMENT: SITE OF TRAUMA/COMPLAINT MARKED/STAMP COMPLETED: NO. TECHNICAL DOCUMENTATION: JOB ID: [id number] [employer]- All Rights Reserved Reading location - IP/workstation name: [email or web address]
[2019-04-06 11:52] VITALS: BP 102/57
== END 2019-04-06 11:50 | disposition home or self-care (01) ==
LOC: ER 09:00
DX: S20.212A Contusion of left front wall of thorax, initial encounter (principal); S80.00XA Contusion of unspecified knee, initial encounter; R07.81 Pleurodynia; W20.8XXA Other cause of strike by thrown, projected or falling object, initial encounter; Z88.2 Allergy status to sulfonamides; Z88.3 Allergy status to other anti-infective agents; F17.200 Nicotine dependence, unspecified, uncomplicated
CPT/HCPCS: 99406; 99283; 71101; J3490